=== PATIENT | male | born 1955 | race Caucasian/White ===

== ENCOUNTER → 2016-12-06 | Outpatient (CLI) | payer BC ==
[2016-12-06 10:12] LABS: MEAN CORPUSCULAR HEMOGLOBIN 31.5 pg (27.0-33.0); MEAN CORPUSCULAR HGB CONC 33.5 g/dl (32.0-36.5); MEAN CORPUSCULAR VOLUME 93.8 fl (80.0-96.0); RED CELL DISTRIBUTION WIDTH 12.8 % (11.5-14.5); WHITE BLOOD COUNT 4.2 K/mm3 (4.0-10.0)
--- NOTE | 2016-12-06 10:22 | REP ---
Clinical: Essential hypertension . Comparison: 11/15/2015 . Technique: PA and lateral. Findings: The mediastinum and cardiac silhouette are normal. The lung dunn are clear and without acute consolidation, effusion, or pneumothorax. The skeletal structures are intact and normal. Impression: 1. No acute cardiopulmonary process. Signed by Jose Dang MD 12/06/2016 10:14 A
[2016-12-06 10:48] LABS: ALBUMIN 3.5 GM/DL (3.2-5.2); ALKALINE PHOSPHATASE 83 U/L (45-117); ALT/SGPT 23 U/L (12-78); ANION GAP 7 MEQ/L (8-16); AST/SGOT 22 U/L (15-37); BILIRUBIN,TOTAL 0.6 MG/DL (0.2-1.0); BLOOD UREA NITROGEN 26 MG/DL (7-18); CALCIUM LEVEL 8.4 MG/DL (8.8-10.2); CARBON DIOXIDE LEVEL 30 MEQ/L (21-32); CHLORIDE LEVEL 105 MEQ/L (98-107); CHOLESTEROL LEVEL 177 MG/DL (<200); CREATININE FOR GFR 0.87 MG/DL (0.70-1.30); GLOMERULAR FILTRATION RATE > 60.0 (>49); GLUCOSE, FASTING 91 MG/DL (80-110); POTASSIUM SERUM 3.9 MEQ/L (3.5-5.1); SODIUM LEVEL 142 MEQ/L (136-145); TRIGLYCERIDES LEVEL 52 MG/DL (<150); URIC ACID 4.9 MG/DL (3.5-7.2)
--- NOTE | 2016-12-06 11:06 | ECGEPIP ---
Stationary ECG Study [facility] Test Date: 2016-12-06 Pat Name: ROD ALEXANDRE Department: Room: - Gender: M Heel Caser: MARKUS : 1955 Requested By: Mireya Carranza Order Number: [id number] Reading MD: Aliyah Hanson Measurements Intervals [place] Rate: 56 P: 47 MN: 166 QRS: 11 QRSD: 102 T: 34 QT: 413 QTc: 399 Interpretive Statements SINUS BRADYCARDIA Left atrial enlargement POSSIBLE Left ventricular hypertrophy VOLTAGE MORE PROMINENT MINIMAL VOLTAGE CRITERIA FOR LVH,NEW RATE SLOWER EARLY REPOLAR CHANGES AGAIN NOTED C/W 11/15/15 Electronically Signed On 12-06-2016 11:05:40 EDT by Aliyah Hanson
== END ==
LOC: M LAB 09:18
PROVIDERS: ATTEND Family Medicine
DX: I10 Essential (primary) hypertension (principal)

== ENCOUNTER 2017-03-12 09:02 | Day surgery (SDC) | payer BC ==
[~2017-03-12] VITALS: Ht 188 cm; Wt 86.2 kg
[~2017-03-12 09:02] MED LIST: ASPI81TA85 PO; LOSA100T8 PO; LR 1,000 ML IV ONE; LR 1,000 ML IV SCH; METO1TAB87 PO; OMEP40CA2 PO
[2017-03-12] MEDS ORDERED: METOPROLOL TART 25 MG TABLET As Ordered ONE (10:29)
[2017-03-12 10:30] VITALS: BP 178/90
[2017-03-12] MEDS ORDERED: METOPROLOL TART 12.5 MG PER 1/2 TAB PO ONE (10:30)
[2017-03-12] MEDS ORDERED: fentaNYL 250 MCG/5 ML INJECTION (J3010) As Ordered ONE (10:34)
[2017-03-12] MEDS ORDERED: LIDOCAINE 2% INJ 100 MG/5 ML SDV (FOR ANES.) As Ordered ONE (10:34)
[2017-03-12] MEDS ORDERED: ROCURONIUM BROMIDE 50 MG/5 ML VIAL/SYRINGE As Ordered ONE (10:34)
[2017-03-12] MEDS ORDERED: PROPOFOL 200 MG/20 ML VIAL As Ordered ONE ×2 (10:34→13:30)
[2017-03-12] MEDS ORDERED: MIDAZOLAM INJ 2 MG/2 ML VIAL (J2250) As Ordered ONE (10:35)
[2017-03-12] MEDS ORDERED: LIDOCAINE 1% SDV INJ 30 ML VIAL As Ordered ONE (12:16)
[2017-03-12] MEDS ORDERED: BUPIVACAINE HCL 0.25% 30 ML VIAL As Ordered ONE (12:16)
[2017-03-12] MEDS ORDERED: ONDANSETRON 4MG/2ML VIAL (J2405) As Ordered ONE (16:38)
[2017-03-12] MEDS ORDERED: LR 1,000 ML IV SCH (17:00)
[2017-03-12] MEDS ORDERED: ONDANSETRON 4MG/2ML VIAL (J2405) IV PRN (17:00)
[2017-03-12] MEDS ORDERED: fentaNYL 100 MCG/2 ML INJECTION (J3010) IV PRN (17:00)
[2017-03-12] MEDS ORDERED: PERCOCET 5MG/325MG TAB PO PRN (17:00)
[2017-03-12] MEDS ORDERED: METOCLOPRAMIDE INJ 10MG/2ML VIAL (J2765) As Ordered ONE (18:03)
[2017-03-12] MEDS ORDERED: METOCLOPRAMIDE INJ 10MG/2ML VIAL (J2765) IV ONE (18:15)
[2017-03-12 19:50] VITALS: BP 182/92
--- NOTE | 2017-03-18 09:38 | RO ---
DATE OF PROCEDURE: 03/12/2017 PREOPERATIVE DIAGNOSIS: Left inguinal hernia. POSTOPERATIVE DIAGNOSIS: Left inguinal hernia. PROCEDURE PERFORMED: Left inguinal herniorrhaphy with ultra Pro mesh. SURGEON: Dr. Chung Olivo ANESTHESIA: Spinal. INDICATIONS FOR PROCEDURE: The patient is a 62-year-old man who has noticed a bulge in the left inguinal area. He has previously had a right inguinal hernia repaired. Examination confirmed a small incomplete left inguinal hernia and he is now for repair. OPERATIVE PROCEDURE: The patient was taken to the operating room where a spinal anesthetic was placed. It took some time for the spinal to set up to be adequate for surgery. The patient's lower abdomen, groins and genitalia were then prepped and draped in a sterile fashion. An approximately 10 cm oblique left lower quadrant skin incision was made over the course of the inguinal canal. The incision was deepened into the subcutaneous tissue using the cautery. The external oblique was exposed and the external oblique fibers were opened in direction of the fibers into the external ring. The spermatic cord was isolated at the pubic tubercle with a [place] drain. Dissection revealed some fibrofatty tissue protruding at the internal ring superiorly and this was dissected free from the cord structures, transected and excised. A small indirect inguinal hernia sac was identified. This was opened and consisted of a small sliding hernia with the sigmoid colon involved as the lateral aspect of the hernia. This hernia sac was closed and then reduced beneath the level of fascia. The patient was also noted to have a small split in the inguinal floor medially. This small split was closed with interrupted simple sutures of #2-0 Ethibond. A 6 x 11 cm piece of ultra Pro mesh was selected. This was trimmed to fit the inguinal floor and split to fit about the spermatic cord laterally. The mesh was sutured to the pubic tubercle with a #3-0 Prolene which was then carried along the lateral border of the mesh suturing this to the shelving edge of the inguinal ligament. Medially, the mesh was tacked down to the underlying tissues using interrupted simple sutures of #3-0 Vicryl. The tails of the mesh were overlapped lateral to the spermatic cord and sutured together with Vicryl. This appeared to give a nice reconstruction and reinforcement of the inguinal floor. 0.25% Marcaine was infiltrated into the deeper tissues of the wound. The external oblique was closed with a running suture of #0 Vicryl. The subcutaneous tissues were closed with chromic and the skin edges with a running subcuticular #4-0 Vicryl and Steri-Strips. Additional 0.25% Marcaine was infiltrated along the skin edges. The patient tolerated the procedure well. A sterile dressing was applied and he was transported to the recovery room in stable condition. LIZETTE
== END 2017-03-12 19:55 | disposition home or self-care (01) ==
LOC: M SDC 09:02
PROVIDERS: ATTEND Surgery
DX: K40.90 Unilateral inguinal hernia, without obstruction or gangrene, not specified as recurrent (principal); I10 Essential (primary) hypertension; K21.9 Gastro-esophageal reflux disease without esophagitis; M12.9 Arthropathy, unspecified; G43.909 Migraine, unspecified, not intractable, without status migrainosus; R06.83 Snoring; Z79.899 Other long term (current) drug therapy; Z79.82 Long term (current) use of aspirin; Z87.891 Personal history of nicotine dependence
CPT/HCPCS: 49505; 88302; 96374; 96375; C1781; J2250; J2405; J2765; J3010

== ENCOUNTER 2017-04-12 12:44 | Inpatient (IN) | payer BC ==
[~2017-04-12] VITALS: Ht 188 cm; Wt 84.5 kg
[~2017-04-12 12:44] MED LIST changes: -LR 1,000 ML IV ONE; -LR 1,000 ML IV SCH
[2017-04-12] MEDS ORDERED: ASPIRIN 325 MG TAB PO ONE (13:15)
[2017-04-12 13:34] LABS: INR 1.07
--- NOTE | 2017-04-12 13:37 | REP ---
Head CT without contrast: History: Syncope. Comparison study: No comparison. CT findings: Bone window settings demonstrate an intact bony calvarium. There is no evidence of skull fracture or incidental bony calvarial lesion. The visualized paranasal sinuses appear clear. No intraorbital abnormality is seen. On soft tissue window setting images; the lateral, third, and fourth ventricles are normal in size and position. Scott-white differentiation pattern is normal above and below the tentorium. There are is no evidence of intracranial hemorrhage. No mass, edema, infarction, or midline shift is seen. No extra-axial fluid collection is appreciated. Impression: Negative noncontrast head CT. Signed by Eliot Bates MD 04/12/2017 01:28 P
[2017-04-12 13:45] LABS: BASO % 0.4 % (0.0-1.0); EOS # 0.1 K/mm3 (0.0-0.50); EOS % 3.2 % (0.0-3.0); LARGE UNSTAINED CELL # 0.1 K/mm3 (0.0-0.4); LARGE UNSTAINED CELL % 2.4 % (0.0-4.0); LYMPH # 1.1 K/mm3 (1.5-4.5); LYMPH % 26.4 % (24.0-44.0); MEAN CORPUSCULAR HEMOGLOBIN 31.9 pg (27.0-33.0); MEAN CORPUSCULAR HGB CONC 34.8 g/dl (32.0-36.5); MEAN CORPUSCULAR VOLUME 91.7 fl (80.0-96.0); MONO # 0.4 K/mm3 (0.0-0.8); MONO % 8.3 % (0.0-5.0); NEUTROPHILS # 2.6 K/mm3 (1.8-7.7); NEUTROPHILS % 59.3 % (36.0-66.0); PLATELET COUNT, AUTOMATED 209 k/mm3 (150-450); RED CELL DISTRIBUTION WIDTH 12.6 % (11.5-14.5); WHITE BLOOD COUNT 4.3 K/mm3 (4.0-10.0)
--- NOTE | 2017-04-12 13:49 | REP ---
Portable chest, 01:33 p.m., single PA view: Comparison is 12/06/2016. The lung dunn are clear. The cardiac size is normal. The estrella, mediastinum, and bony thorax are unremarkable. Impression: Negative portable chest. There is no interval change. No old no Signed by Juan M Jha MD 04/12/2017 01:41 P
[2017-04-12] MEDS: cloNIDine 0.1 MG TAB PO ONE (13:51)
[2017-04-12] MEDS: NS 1,000 ML IV SCH ×2 (13:51→21:30)
[2017-04-12 13:59] LABS: ANION GAP 3 MEQ/L (8-16); BLOOD UREA NITROGEN 25 MG/DL (7-18); CALCIUM LEVEL 8.8 MG/DL (8.8-10.2); CARBON DIOXIDE LEVEL 32 MEQ/L (21-32); CHLORIDE LEVEL 104 MEQ/L (98-107); GLOMERULAR FILTRATION RATE > 60.0 (>49); GLUCOSE, FASTING 90 MG/DL (80-110); POTASSIUM SERUM 4.1 MEQ/L (3.5-5.1); SODIUM LEVEL 139 MEQ/L (136-145)
[2017-04-12] MEDS ORDERED: cloNIDine HCL 0.1 MG/24 HR PATCH TOP ONE (15:00)
[2017-04-12] MEDS ORDERED: ONDANSETRON 4MG/2ML VIAL (J2405) IV PRN (15:15)
[2017-04-12] MEDS ORDERED: BISACODYL 5 MG TAB PO PRN (15:15)
[2017-04-12] MEDS ORDERED: cloNIDine HCL 0.1 MG/24 HR PATCH TOP SCH (15:15)
[2017-04-12] MEDS ORDERED: amLODIPine 5 MG TAB PO ONE (15:30)
[2017-04-12 15:48] LABS: METHADONE URINE NEGATIVE (NEGATIVE)
[2017-04-12] MEDS ORDERED: VITMTA PO (16:20)
[2017-04-12] MEDS ORDERED: GLUCTAB6 PO (16:20)
[2017-04-12] MEDS ORDERED: VITA100066 PO (16:20)
--- NOTE | 2017-04-12 18:55 | HPEPDOC ---
General Date of Admission Apr 12, 2017 at 15:13 Primary Care Physician: Mireya Pena Chief Complaint The patient is a 62-year-old male admitted with a reason for visit of Near Syncope. History of Present Illness The patient is a pleasant 62-year-old male who presents to the emergency department with the chief complaint of bilateral "" tunnel vision"". 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 The patient states that he did not experience associated shortness of breath, chest pain, heart palpitations, nausea, headache, sweating or acutely becoming hot. He also states at the end of a work day ( 10+ hours sitting at a desk) he has b/l swelling of his feet to his ankles, has seen a vascular surgeon for possible removal of vericose veins. He also admits to losing about 27 lbs in three months unintentionally, he states he was very stressed out though since his mom was very sick and just passed recently. Denied night sweats or chills. The patient states that this similar episode happened approximately 1 week ago while he was at [employer] sitting down eating with his family, again the transient tunnel vision lasted about 10 seconds with quick onset and quick abatement. The patient did admit that after the event he felt "" light"", he denied being dizzy or feeling "" lightheaded "" but just felt like his "" whole-body was light "". His stated that during these episodes he did not lose consciousness but that she could tell something was wrong by the "" look on his face "", she also states that he is able to talk and interact appropriately with these episodes of transient tunnel vision occur. Does admit to about a year ago experiencing 2 of these episodes while at work sitting down at his desk with the exact same presentation and sequela as the aforementioned incidents. He has never had a heart attack, stroke or been told that he has an irregular heart rate. He states that he is a very active individual in used to participate regularly in tae abi do. He does admit to progressive bilateral upper and lower extremity weakness that has been slowly progressing for the past 2 years, to the point that he can no longer perform tae aib do or 1 to exercise like he used to. 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 He denies any incontinence of bowel or urine nor paralysis or loss of sensation of extremities , has no inner, upper thigh numbness. He also does admit to 4 episodes of profuse watery, nonbloody, nonmucous containing stool this morning, denied abdominal pain or associated fever, nausea or vomiting. He does take his blood pressure at home and states that it is usually around 140-150/70-80. He states that his blood pressure is normally under control but that every once in a while when he goes to donate blood and they tell him that it is high in these events. He states he sees his primary care doctor regularly. He denies current or history of headaches or change in vision aside from the acute event that brought him to the emergency department today. Home Medications Scheduled (Losartan Potassium/Hydroc 100-12.5 mg) 1 Tab Tab, 1 TAB PO DAILY, (Reported) (Glucosamine Chondroitin) 1 Tab Tab, 2 TAB PO DAILY, (Reported) Aspirin (Aspir-81) 81 Mg Tab, 81 MG PO DAILY, (Reported) Cholecalciferol (Vitamin D) 1,000 Unit Tab, 1,000 UNIT PO DAILY, (Reported) Metoprolol Tartrate (Metoprolol Tartrate) 25 Mg Tab, 25 MG PO BID, (Reported) Multivitamins *[facility] STOCKED* (Thera M Plus *[facility] STOCKED*) 1 Tab Tab, 1 TAB PO DAILY, (Reported) Allergies Coded Allergies: No Known Drug Allergy (Verified Allergy, Unknown, 03/12/17) Past Medical History Medical History HTN Surgical History left inguinal hernia repair Family History Significant Family History: Heart disease (pt has strong family history of heart disease and [place], mother had a. fib. ) Social History * Smoker: former Smoker (quit in 1978 used to smoke 2 ppd since he was 24 y/o) Alcohol: other (quit in 1978 used to drink daily beer and rum since early ) Drugs: denies Psychosocial History: No pertinent psych hx very fit, likes to do art abi and run do but has not been able to do so in over two years due to weakness in legs Review of Symptoms Constitutional: Reports: Malaise, Weakness, Denies: Chills, Fever, Night Sweats Eyes: Reports: Vision change, Denies: Conjunctivae inflammation, Eyelid inflammation ENT: Denies: Head Aches, Ear Pain Skin: Denies: Rash, Lesions Pulmonary: Denies: Dyspnea, Cough, Pleuritic Chest Pain Cardiovascular: Reports: Edema, Lt Headedness, Denies: Chest Pain, Palpitations, Orthopnea Gastrointestinal: Reports: Diarrhea, Denies: Nausea, Vomiting, Abdominal Pain, Constipation Genitourinary: Denies: Dysuria Musculoskeletal: Denies: Neck Pain Neurological: Reports: Weakness, Denies: Numbness Psych: Reports: Mood Normal Physical Examination General Exam: Positive: Alert, Cooperative, No Acute Distress Eye Exam: Positive: PERRLA, Conjunctiva & lids normal, EOMI, Negative: Sclera icteric, Ptosis ENT Exam: Positive: Atraumatic, Mucous membr. moist/pink, Pharynx Normal, Tongue Midline, Nares Patent, Negative: Pharyngeal Edema Neck Exam: Positive: Supple, Negative: JVD Chest Exam: Positive: Clear to auscultation, Normal air movement, Negative: Rales, Rhonchi, Wheezing, Diminished Heart Exam: Positive: Rate Normal, Normal S1, Normal S2, Negative: Irregular Rhythm Telemetry: Positive: No significant arrhythmia Abdomen Exam: Positive: Normal bowel sounds, Soft, Negative: BS Hyperactive, BS Hypoactive, Tenderness, Hepatospenomegaly Extremity Exam: Positive: Normal pulses (strong dorsalis pedis pulses b/l), Other (vericose veins b/l LE), Negative: Clubbing, Cyanosis, Edema Skin Exam: Negative: Rash, Breakdown Psych Exam: Positive: Mental status NL Vital Signs Vital Signs Date Time Temp Pulse Resp B/P (MAP) Pulse Ox O2 Delivery O2 Flow Rate FiO2 04/12/17 17:00 50 99 04/12/17 16:56 199/107 (137) 04/12/17 12:45 98.2 18 Room Air Laboratory Data Labs 24H Laboratory Tests 2 04/12/17 13:16: White Blood Count 4.3, Red Blood Count 4.22L, Hemoglobin 13.5L, Hematocrit 38.7L , Mean Corpuscular Volume 91.7, Mean Corpuscular Hemoglobin 31.9, Mean Corpuscular Hemoglobin Concent 34.8, Red Cell Distribution Width 12.6, Platelet Count 209, Neutrophils (%) (Auto) 59.3, Lymphocytes (%) (Auto) 26.4, Monocytes ( %) (Auto) 8.3H, Eosinophils (%) (Auto) 3.2H, Basophils (%) (Auto) 0.4, Neutrophils # (Auto) 2.6, Lymphocytes # (Auto) 1.1L, Monocytes # (Auto) 0.4, Eosinophils # (Auto) 0.1, Basophils # (Auto) 0.0, Large Unclassified Cells % 2.4 , Large Unclassified Cells # 0.1, Prothrombin Time 14.0, Prothromb Time International Ratio 1.07, D-Dimer, Quantitative 963.4H, Anion Gap 3L, Glomerular Filtration Rate > 60.0, Blood Urea Nitrogen 25H, Creatinine 0.90, Sodium Level 139, Potassium Level 4.1, Chloride Level 104, Carbon Dioxide Level 32, Calcium Level 8.8, Total Creatine Kinase 80, Magnesium Level 2.0, Creatine Kinase MB 3.0, Creatine Kinase MB Relative Index 3.75, Troponin I < 0.02, Thyroid Stimulating Hormone (TSH) 1.730, Free Thyroxine 0.90, Ethyl Alcohol Level < 0.003 04/12/17 14:54: Urine Appearance CLEAR, Urine Color YELLOW, Urine pH 5.0, Urine Specific [place] 1.021, Urine Protein NEGATIVE, Urine Glucose (UA) NEGATIVE, Urine Ketones NEGATIVE, Urine Urobilinogen 0.2, Urine Bilirubin NEGATIVE, Urine Leukocyte Esterase NEGATIVE, Urine Blood NEGATIVE, Urine Nitrite NEGATIVE, Urine WBC (Auto) 0, Urine RBC (Auto) 2, Urine Hyaline Casts (Auto) 0, Urine Bacteria (Auto) NEGATIVE, Urine Squamous Epithelial Cells 0, Urine Sperm (Auto) , Urine Amphetamines Screen NEGATIVE, Urine Benzodiazepines Screen NEGATIVE, Urine Opiates Screen NEGATIVE, Urine Methadone Screen NEGATIVE, Urine Barbiturates Screen NEGATIVE, Urine Phencyclidine Screen NEGATIVE, Urine Cocaine Metabolite Screen NEGATIVE, Urine Cannabinoids Screen NEGATIVE CBC/BMP Laboratory Tests 04/12/17 13:16 Red Blood Count 4.22 L, Mean Corpuscular Volume 91.7, Mean Corpuscular Hemoglobin 31.9, Mean Corpuscular Hemoglobin Concent 34.8, Red Cell Distribution Width 12.6, Neutrophils (%) (Auto) 59.3, Lymphocytes (%) (Auto) 26.4, Monocytes (%) (Auto) 8.3 H, Eosinophils (%) (Auto) 3.2 H, Basophils (%) ( Auto) 0.4, Neutrophils # (Auto) 2.6, Lymphocytes # (Auto) 1.1 L, Monocytes # ( Auto) 0.4, Eosinophils # (Auto) 0.1, Basophils # (Auto) 0.0, Calcium Level 8.8, Total Creatine Kinase 80 Problems (1) Near syncope Status: Acute Response to Treatment: Stable Problem Text: Pt did have HR in the 40-50's in the ED, he states he has been on his new beta penelope Metoprolol for the past three months, he takes his medications religiously he admits. Suspect this could be from excessive beta blockage, however could also be arrhythmogenic in nature. Pt will be monitored in telemetry and it was discussed with pt and that f/ u cardiology with holter monitoring would be appropriate on outpt f/u. Will obtain ECHO and venous doppler u/s of LE. CXR and head CT did not demonstrate infiltrate nor bleed/mass to account for event TSH pending first set of card. osorio negative, will trend Will obtain orthostatics Will begin aspirin, losartan and amlodipine, will hold beta blockers at this time. (2) Weakness Status: Acute Response to Treatment: Stable Problem Text: Neuro exam did not demonstrate focal deficit, strength and sensation in tact upper and lower extremities suspect this could be secondary to neuropathy and outpt f/u with neurology with possible EMG studies was discussed with pt. Will obtain B12 level Denied saddle/groin anesthesia nor incontinence of bowel or urine, sensation in tact in upper groin/thighs (3) Hypertensive urgency Status: Acute Response to Treatment: Stable Problem Text: 227/112 on presentation to ED will begin amlodipine, aspirin and losartan may consider add on agent or adjustment if BP does not normalize do not suspect this is secondary HTN at this time ECHO pending (4) Bradycardia Status: Acute Response to Treatment: Stable Problem Text: pt did have heart rate in the 40-50 range upon presentation to ED , have stopped beta penelope mediation at this time continue to monitor, in telemetry unit (5) Diarrhea Status: Acute Response to Treatment: Stable Problem Text: pt had transient episode of 4x loose stool this AM, non-bloody, no mucus would continue to monitor at this point, pt does not complain of abdominal pain nor history of loose stool (6) DVT prophylaxis Status: Acute Response to Treatment: Stable Problem Text: SCD TEDS Plan / VTE VTE Prophylaxis Ordered?: Yes GME ATTESTATION GME ATTESTATION My preceptor for this patient encounter was physically present in the building during the encounter and was fully available. As needed, all aspects of the patient interview, examination, medical decision making process, and medical care plan development were reviewed and approved by the preceptor. Preceptor is aware and concurs with the plan as stated in the body of this note and will attest to such by his/her cosignature. JEREMI ROGERS DO Apr 12, 2017 18:55 JUANCHO HERRON MD Apr 13, 2017 16:31
[2017-04-12 19:30] LABS: VITAMIN B12 LEVEL 484 PG/ML (247-911)
--- NOTE | 2017-04-12 19:30 | REPUSA ---
Clinical history: Pain, swelling. Findings: The common femoral, superficial femoral, popliteal, and other deep venous structures compre ss normally and demonstrate normal color Doppler flow. Normal venous waveforms with augmentation are seen. Impression: No evidence of deep vein thrombosis in the femoral popliteal venous system.
[2017-04-12] MEDS: NITROGLYCERIN 2% OINT 1 GM *U/D* PKT TOP SCH ×2 (20:00→23:25)
[2017-04-12 20:18] VITALS: BP 160/83
[2017-04-12 20:22] VITALS: BP 120/48
[2017-04-12] MEDS: LOSARTAN 50 MG TAB PO SCH (21:00)
[2017-04-12] MEDS: hydrALAZINE INJ 20 MG/ML VIAL IV SCH (21:00)
[2017-04-12 21:15] VITALS: BP 128/68
[2017-04-12 21:16] VITALS: BP 143/75
[2017-04-12 21:17] VITALS: BP 132/86
[2017-04-12] MEDS: HEPARIN SOD (PORCINE) 5000 UNITS/ML VIAL SC SCH (21:30)
[2017-04-12 23:26] VITALS: BP_SYST 131; BP_SYST 135; BP_SYST 155; BP_DIAS 70; BP_DIAS 73; BP_DIAS 77
[2017-04-13] VITALS (8 sets, daily range): BP systolic 143–179; BP diastolic 73–86
[2017-04-13] MEDS: NITROGLYCERIN 2% OINT 1 GM *U/D* PKT TOP SCH (03:58)
[2017-04-13] MEDS: hydrALAZINE INJ 20 MG/ML VIAL IV SCH (03:58)
[2017-04-13] MEDS: HEPARIN SOD (PORCINE) 5000 UNITS/ML VIAL SC SCH ×3 (05:27→21:22)
[2017-04-13] MEDS: NS 1,000 ML IV SCH (05:27)
[2017-04-13 05:40] LABS: BASO % 0.5 % (0.0-1.0); EOS # 0.1 K/mm3 (0.0-0.50); EOS % 3.8 % (0.0-3.0); LARGE UNSTAINED CELL # 0.1 K/mm3 (0.0-0.4); LARGE UNSTAINED CELL % 2.7 % (0.0-4.0); MEAN CORPUSCULAR HEMOGLOBIN 32.4 pg (27.0-33.0); MEAN CORPUSCULAR HGB CONC 35.7 g/dl (32.0-36.5); MEAN CORPUSCULAR VOLUME 90.8 fl (80.0-96.0); MONO # 0.2 K/mm3 (0.0-0.8); MONO % 7.5 % (0.0-5.0); NEUTROPHILS # 1.7 K/mm3 (1.8-7.7); NEUTROPHILS % 53.4 % (36.0-66.0); PLATELET COUNT, AUTOMATED 183 k/mm3 (150-450); RED CELL DISTRIBUTION WIDTH 12.7 % (11.5-14.5); WHITE BLOOD COUNT 3.2 K/mm3 (4.0-10.0)
[2017-04-13 05:59] LABS: ANION GAP 7 MEQ/L (8-16); BLOOD UREA NITROGEN 18 MG/DL (7-18); CALCIUM LEVEL 8.4 MG/DL (8.8-10.2); CARBON DIOXIDE LEVEL 28 MEQ/L (21-32); CHLORIDE LEVEL 110 MEQ/L (98-107); CREATININE FOR GFR 0.61 MG/DL (0.70-1.30); GLOMERULAR FILTRATION RATE > 60.0 (>49); GLUCOSE, FASTING 84 MG/DL (80-110); POTASSIUM SERUM 3.8 MEQ/L (3.5-5.1); SODIUM LEVEL 145 MEQ/L (136-145)
--- NOTE | 2017-04-13 08:34 | ECGEPIP ---
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
[2017-04-13] MEDS ORDERED: hydroCHLOROthiazide 12.5 MG CAPSULE PO SCH (09:00)
[2017-04-13] MEDS: ASPIRIN 81 MG ENTERIC TAB PO SCH (10:08)
[2017-04-13] MEDS: LOSARTAN 50 MG TAB PO SCH ×2 (10:09→21:21)
[2017-04-13] MEDS: OMEPRAZOLE 20 MG CAP PO SCH (10:09)
--- NOTE | 2017-04-13 14:48 | IPNPDOC ---
Date Seen The patient was seen on 04/13/17. Progress Note In brief this is a 62-year-old man who presented yesterday after having tunnel vision and a feeling as he was given a pass out while driving a car he denies associated prodromal symptoms he denies any actual passing out he denies chest pressure or nausea vomiting he doesn't have some lightheadedness he had similar episode at a restaurant several days earlier and also several years ago he's had intermittent episodes no etiology has ever been determined. He has not had any episodes of loss of consciousness no bladder or bowel incontinence. He did have several episodes of diarrhea in the morning but was not having a bowel movement while driving he was not passing gas or bearing down SUBJECTIVE: At the present time the patient tells me that he is feeling completely back to normal he is asymptomatic he denies chest pain shortness breath fevers chills nausea vomiting diarrhea OBJECTIVE PHYSICAL EXAMINATION: VITAL SIGNS: Please see below. GENERAL: In general he is a pleasant elderly man sitting up in bed watching television he does not appear to be in any acute distress whatsoever HEENT: Pupils are equally round and reactive to light he is wearing glasses she has moist mucous membranes elevation CVP CARDIOVASCULAR: S1-S2. Regular rate and rhythm RESPIRATORY: Clear to auscultation bilaterally. ABDOMINAL: Bowel sounds are present abdomen soft and nontender EXTREMITIES: No clubbing cyanosis or edema NEUROLOGICAL: Nonfocal 5/5 strength in all 4 extremities LABORATORY DATA: Please see below. MICROBIOLOGY: Please see below. IMAGING: CT scan of the head:Negative noncontrast head CT. Chest x-ray:egative portable chest. There is no interval change Duplex ultrasound:No evidence of deep vein thrombosis in the femoral popliteal venous system. Echocardiogram: Ordered. DVT prophylaxis ordered?: Heparin every 8 ASSESSMENT AND PLAN: This is a 62-year-old man with near syncope. PROBLEMS: 1. And near syncope: The etiology remains unclear he is somewhat bradycardic and was on a beta penelope at this time we have held this and continue to monitor him on telemetry. He does not appear to have any neurological deficit he does not appear to have any stressors to suggest a vasovagal response no seizure-like activity significant cardiac history. Multiple sets of cardiac enzymes are negative. We are checking an echocardiogram. He is not orthostatic. Should an etiology of be unable to be determined consider having the patient evaluated for an outpatient Holter monitor. Positive rhinitis suspect his beta penelope, TSH within normal limits 2. Hypertension: The patient was quite hypertensive at times presentation at this time he does appear to be better controlled he is on hydrochlorothiazide and losartan. If he remains hypertensive would titrate up his hydrochlorothiazide and consider the addition of amlodipine 3. Gastroesophageal reflux disease: With omeprazole. 4. Weakness: Not associated with his near syncopal episodes with he has had intermittent episodes of weakness would recommend outpatient follow-up with neurology potential referral 5. Diarrhea: Appears of resolved at this time which are short-lived does not appear as though he had a vasovagal response however he did have 4 episodes prior to starting his time in a car ride when he had his near syncopal episode, his previous episodes of near-syncope have not been associated with bowel movements either a GI PCR panel has been ordered and is negative. His diarrhea has resolved. DISPOSITION: Pending echocardiogram review. VS, I&O, 24H, Fishbone Vital Signs/I&O Vital Signs Date Time Temp Pulse Resp B/P (MAP) Pulse Ox O2 Delivery O2 Flow Rate FiO2 04/13/17 12:00 97.5 73 18 158/77 (104) 99 Room Air I&O- Last 24 Hours up to 6 AM 04/14/17 06:00 Intake Total 700 ml Output Total 800 ml Balance -100 ml Laboratory Data 24H LABS Laboratory Tests 2 04/12/17 14:54: Urine Appearance CLEAR, Urine Color YELLOW, Urine pH 5.0, Urine Specific [place] 1.021, Urine Protein NEGATIVE, Urine Glucose (UA) NEGATIVE, Urine Ketones NEGATIVE, Urine Urobilinogen 0.2, Urine Bilirubin NEGATIVE, Urine Leukocyte Esterase NEGATIVE, Urine Blood NEGATIVE, Urine Nitrite NEGATIVE, Urine WBC (Auto) 0, Urine RBC (Auto) 2, Urine Hyaline Casts (Auto) 0, Urine Bacteria (Auto) NEGATIVE, Urine Squamous Epithelial Cells 0, Urine Sperm (Auto) , Urine Amphetamines Screen NEGATIVE, Urine Benzodiazepines Screen NEGATIVE, Urine Opiates Screen NEGATIVE, Urine Methadone Screen NEGATIVE, Urine Barbiturates Screen NEGATIVE, Urine Phencyclidine Screen NEGATIVE, Urine Cocaine Metabolite Screen NEGATIVE, Urine Cannabinoids Screen NEGATIVE 04/12/17 17:47: Total Creatine Kinase 68, Creatine Kinase MB 2.7, Creatine Kinase MB Relative Index 3.97, Troponin I < 0.02 04/13/17 00:50: Total Creatine Kinase 70, Creatine Kinase MB 2.3, Creatine Kinase MB Relative Index 3.28, Troponin I < 0.02 04/13/17 05:12: Total Creatine Kinase 72, Creatine Kinase MB 2.4, Creatine Kinase MB Relative Index 3.33, Troponin I < 0.02, White Blood Count 3.2L, Red Blood Count 3.98L, Hemoglobin 12.9L, Hematocrit 36.1L, Mean Corpuscular Volume 90.8, Mean Corpuscular Hemoglobin 32.4, Mean Corpuscular Hemoglobin Concent 35.7, Red Cell Distribution Width 12.7, Platelet Count 183, Neutrophils (%) (Auto) 53.4, Lymphocytes (%) (Auto) 32.0, Monocytes (%) (Auto) 7.5H, Eosinophils (%) (Auto) 3.8H, Basophils (%) (Auto) 0.5, Neutrophils # (Auto) 1.7L, Lymphocytes # (Auto) 1.0L, Monocytes # (Auto) 0.2, Eosinophils # (Auto) 0.1, Basophils # (Auto) 0.0, Large Unclassified Cells % 2.7, Large Unclassified Cells # 0.1, Anion Gap 7L, Glomerular Filtration Rate > 60.0, Blood Urea Nitrogen 18, Creatinine 0.61L, Sodium Level 145, Potassium Level 3.8, Chloride Level 110H, Carbon Dioxide Level 28, Calcium Level 8.4L CBC/BMP Laboratory Tests 04/13/17 05:12 Red Blood Count 3.98 L, Mean Corpuscular Volume 90.8, Mean Corpuscular Hemoglobin 32.4, Mean Corpuscular Hemoglobin Concent 35.7, Red Cell Distribution Width 12.7, Neutrophils (%) (Auto) 53.4, Lymphocytes (%) (Auto) 32.0, Monocytes (%) (Auto) 7.5 H, Eosinophils (%) (Auto) 3.8 H, Basophils (%) ( Auto) 0.5, Neutrophils # (Auto) 1.7 L, Lymphocytes # (Auto) 1.0 L, Monocytes # ( Auto) 0.2, Eosinophils # (Auto) 0.1, Basophils # (Auto) 0.0, Calcium Level 8.4 L , Total Creatine Kinase 72 Microbiology Microbiology 04/13/17 Gastrointestinal Tract Panel (PCR) - Final, Complete IGLESIAS,NAZEEL MD Apr 13, 2017 14:48
[2017-04-13] MEDS: ACETAMINOPHEN TAB 650MG DOSE (2X325MG) PO PRN (17:20)
[2017-04-14 04:00] VITALS: BP 165/83
[2017-04-14] MEDS: HEPARIN SOD (PORCINE) 5000 UNITS/ML VIAL SC SCH ×3 (05:24→21:54)
--- NOTE | 2017-04-14 05:40 | ECGEPIP ---
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
[2017-04-14 06:00] LABS: BASO % 0.3 % (0.0-1.0); EOS # 0.1 K/mm3 (0.0-0.50); EOS % 2.3 % (0.0-3.0); LARGE UNSTAINED CELL # 0.1 K/mm3 (0.0-0.4); LARGE UNSTAINED CELL % 2.2 % (0.0-4.0); LYMPH # 1.1 K/mm3 (1.5-4.5); LYMPH % 24.9 % (24.0-44.0); MEAN CORPUSCULAR HEMOGLOBIN 32.4 pg (27.0-33.0); MEAN CORPUSCULAR HGB CONC 35.1 g/dl (32.0-36.5); MEAN CORPUSCULAR VOLUME 92.1 fl (80.0-96.0); MONO # 0.4 K/mm3 (0.0-0.8); MONO % 8.5 % (0.0-5.0); NEUTROPHILS # 2.8 K/mm3 (1.8-7.7); NEUTROPHILS % 61.8 % (36.0-66.0); PLATELET COUNT, AUTOMATED 212 k/mm3 (150-450); RED CELL DISTRIBUTION WIDTH 12.8 % (11.5-14.5); WHITE BLOOD COUNT 4.5 K/mm3 (4.0-10.0)
[2017-04-14 06:08] LABS: ANION GAP 6 MEQ/L (8-16); BLOOD UREA NITROGEN 18 MG/DL (7-18); CALCIUM LEVEL 8.4 MG/DL (8.8-10.2); CARBON DIOXIDE LEVEL 30 MEQ/L (21-32); CHLORIDE LEVEL 108 MEQ/L (98-107); CREATININE FOR GFR 0.79 MG/DL (0.70-1.30); GLOMERULAR FILTRATION RATE > 60.0 (>49); GLUCOSE, FASTING 89 MG/DL (80-110); POTASSIUM SERUM 4.1 MEQ/L (3.5-5.1); SODIUM LEVEL 144 MEQ/L (136-145)
[2017-04-14 08:00] VITALS: BP 178/84
[2017-04-14] MEDS: ASPIRIN 81 MG ENTERIC TAB PO SCH (09:00)
[2017-04-14] MEDS: OMEPRAZOLE 20 MG CAP PO SCH (09:00)
[2017-04-14] MEDS: LOSARTAN 50 MG TAB PO SCH ×2 (09:00→21:54)
[2017-04-14] MEDS: hydroCHLOROthiazide 25 MG TAB PO SCH (09:01)
--- NOTE | 2017-04-14 11:30 | IPNPDOC ---
Date Seen The patient was seen on 04/14/17. Progress Note SUBJECTIVE: At the present time the patient tells me that he is feeling completely back to normal he is asymptomatic he denies chest pain shortness breath fevers chills nausea vomiting diarrhea OBJECTIVE PHYSICAL EXAMINATION: VITAL SIGNS: Please see below. GENERAL: In general he is a pleasant elderly man sitting up in bed he does not appear to be in any acute distress, he is accompanied by his and daughter HEENT: Pupils are equally round and reactive to light he is wearing glasses she has moist mucous membranes elevation CVP CARDIOVASCULAR: S1-S2. Regular rate and rhythm RESPIRATORY: Clear to auscultation bilaterally. ABDOMINAL: Bowel sounds are present abdomen soft and nontender EXTREMITIES: No clubbing cyanosis or edema NEUROLOGICAL: Nonfocal 5/5 strength in all 4 extremities LABORATORY DATA: Please see below. MICROBIOLOGY: Please see below. IMAGING: CT scan of the head:Negative noncontrast head CT. Chest x-ray:egative portable chest. There is no interval change Duplex ultrasound:No evidence of deep vein thrombosis in the femoral popliteal venous system. Echocardiogram: Ordered. DVT prophylaxis ordered?: Heparin every 8 ASSESSMENT AND PLAN: This is a 62-year-old man with near syncope. PROBLEMS: 1. And near syncope: The etiology remains unclear he is somewhat bradycardic and was on a beta penelope at this time we have held this and continue to monitor him on telemetry. He does not appear to have any neurological deficit he does not appear to have any stressors to suggest a vasovagal response no seizure-like activity or significant cardiac history. Multiple sets of cardiac enzymes are negative. We are checking an echocardiogram. He is not orthostatic. He has a hx of complex migraines which is treated only with tylenol. Should an etiology of be unable to be determined consider having the patient evaluated for an outpatient Holter monitor. TSH within normal limits. Con't to monitor 2. Hypertension: The patient was quite hypertensive at the time of his presentation at this time he does appear to be sub optimially controlled he is on hydrochlorothiazide which we will titrate up and cont losartan. 3. Gastroesophageal reflux disease: With omeprazole. 4. Weakness: Not associated with his near syncopal episodes with he has had intermittent episodes of weakness would recommend outpatient follow-up with neurology potential referral, possibly related to his atypical migraines with visual auras 5. Diarrhea: Appears of resolved at this time which are short-lived does not appear as though he had a vasovagal response however he did have 4 episodes prior to starting his time in a car ride when he had his near syncopal episode, his previous episodes of near-syncope have not been associated with bowel movements either a GI PCR panel has been ordered and is negative. His diarrhea has resolved. DISPOSITION: Pending echocardiogram review. VS, I&O, 24H, Fishbone Vital Signs/I&O Vital Signs Date Time Temp Pulse Resp B/P (MAP) Pulse Ox O2 Delivery O2 Flow Rate FiO2 04/14/17 09:00 165/83 04/14/17 08:00 98.4 84 18 98 Room Air I&O- Last 24 Hours up to 6 AM 04/15/17 06:00 Intake Total 0 ml Output Total 0 ml Balance 0 ml Laboratory Data 24H LABS Laboratory Tests 2 04/14/17 05:22: White Blood Count 4.5, Red Blood Count 4.14L, Hemoglobin 13.4L, Hematocrit 38.2L , Mean Corpuscular Volume 92.1, Mean Corpuscular Hemoglobin 32.4, Mean Corpuscular Hemoglobin Concent 35.1, Red Cell Distribution Width 12.8, Platelet Count 212, Neutrophils (%) (Auto) 61.8, Lymphocytes (%) (Auto) 24.9, Monocytes ( %) (Auto) 8.5H, Eosinophils (%) (Auto) 2.3, Basophils (%) (Auto) 0.3, Neutrophils # (Auto) 2.8, Lymphocytes # (Auto) 1.1L, Monocytes # (Auto) 0.4, Eosinophils # (Auto) 0.1, Basophils # (Auto) 0.0, Large Unclassified Cells % 2.2 , Large Unclassified Cells # 0.1, Anion Gap 6L, Glomerular Filtration Rate > 60.0, Blood Urea Nitrogen 18, Creatinine 0.79, Sodium Level 144, Potassium Level 4.1, Chloride Level 108H, Carbon Dioxide Level 30, Calcium Level 8.4L CBC/BMP Laboratory Tests 04/14/17 05:22 Red Blood Count 4.14 L, Mean Corpuscular Volume 92.1, Mean Corpuscular Hemoglobin 32.4, Mean Corpuscular Hemoglobin Concent 35.1, Red Cell Distribution Width 12.8, Neutrophils (%) (Auto) 61.8, Lymphocytes (%) (Auto) 24.9, Monocytes (%) (Auto) 8.5 H, Eosinophils (%) (Auto) 2.3, Basophils (%) ( Auto) 0.3, Neutrophils # (Auto) 2.8, Lymphocytes # (Auto) 1.1 L, Monocytes # ( Auto) 0.4, Eosinophils # (Auto) 0.1, Basophils # (Auto) 0.0, Calcium Level 8.4 L Microbiology Microbiology 04/13/17 Gastrointestinal Tract Panel (PCR) - Final, Complete SIOBHAN IGLESIAS MD Apr 14, 2017 11:30
[2017-04-14 12:00] VITALS: BP 174/100
[2017-04-14] MEDS ORDERED: amLODIPine 5 MG TAB PO ONE (13:15)
--- NOTE | 2017-04-14 13:36 | ECHO ---
DATE OF PROCEDURE: 04/13/2017 DATE OF : 1955 AGE: 62 GENDER: Male. HEIGHT: 74 inches. WEIGHT: 194 pounds. BODY SURFACE AREA: 2.15 m/s INPATIENT: Progressive care unit (PCU), Room 3218. REFERRING PHYSICIAN: Melia White INDICATION: Syncope. MEASUREMENTS: 2D Measurements: RV: 4.2 cm LV: 5.2 cm Septum: 1.2 cm Posterior wall: 1.2 cm Aortic root: 3.6 cm LA: 4.1 cm LVEF: 65% DOPPLER MEASUREMENTS: AV: 1.5 m/s LVOT: 0.96 m/s LVOT diameter: 2.2 cm MV-E: 87, A: 97, EA ratio: 0.9 Early mitral deceleration time: 296 ms E prime: 6.3 A prime: 9.5 E/E prime ratio: 13.8 Pulmonary artery wedge pressure: 11 mmHg PV: 0.8 m/s Pulmonary artery acceleration time: 109 ms RVSP: 35-40 mmHg. IVC: 2.1 cm COMMENTS: Normal sinus rhythm without intraventricular conduction disturbance. Mildly dilated left atrium but normal left ventricular size. Right heart chamber sizes were upper limits of normal to mildly increased. Left ventricular (LV) wall thickness was upper limits of normal to mildly increased. On real-time imaging from the parasternal and apical projections, wall motion was symmetrical and normal to hyperkinetic. Slightly thickened mitral annulus but normal leaflet thickness and excursion with no posterior systolic buckling. Three equal size aortic cusps with marginally thickened cusp edges but adequate cusp separation. Normal aortic root size. No apparent intracardiac mass or pericardial effusion. Color flow Doppler study taken from the parasternal and apical projections showed trace aortic, mild mitral and very mild tricuspid insufficiency with mild pulmonic insufficiency. Guided continuous wave Doppler of his aortic valve showed a normal peak systolic velocity against LV outflow tract obstruction. Pulsed and continuous wave Doppler of his LV inflow tract taken from the apical four-chamber projection showed normal diastolic filling velocities against mitral stenosis. There was more prominent late diastolic/atrial dependent filling pattern. LV diastolic dysfunction was further confirmed by prolonged early mitral deceleration time and tissue Doppler of his mitral annulus. However, his current mean left atrial pressure was within normal limits. Pulsed and continuous wave Doppler of his pulmonary trunk showed a normal peak systolic velocity against RV outflow tract obstruction. His pulmonary artery acceleration time was abbreviated, consistent with at least a mildly elevated pulmonary vascular resistance. Guided continuous wave Doppler of his tricuspid valve allowed our further estimation of his right ventricular systolic pressure (at least mildly increased). His inferior vena cava was upper limits of normal with normal respiratory collapse consistent with a normal estimated central venous pressure at this time. CONCLUSIONS: Unable to define a clear structural or functional cause for the patient's syncopal spell. Borderline left ventricular hypertrophy with preserved systolic function. Mild left atrial enlargement with Doppler evidence of an impairment of LV diastolic function but currently estimated mean left atrial pressure. Borderline increased right heart chamber sizes with normal wall motion. Doppler evidence of at least mild to perhaps moderate pulmonary hypertension. Normal inferior vena cava (IVC) size and collapse, against an elevated central venous pressure at this time. Subtle aortic valvular sclerosis without stenosis and only trace insufficiency. Very mild mitral annular thickening without inflow tract obstruction and only mild insufficiency.
[2017-04-14 15:00] VITALS: BP 160/78
[2017-04-14 16:00] VITALS: BP 134/72
[2017-04-14 20:00] VITALS: BP 132/80
[2017-04-14] MEDS: SLF 3 ML SYR IV SCH (21:58)
[2017-04-14] MEDS ORDERED: SLF 3 ML SYR IV PRN (22:00)
[2017-04-14] MEDS: ACETAMINOPHEN TAB 650MG DOSE (2X325MG) PO PRN (23:55)
[2017-04-15] VITALS: BP 140/70
[2017-04-15 04:00] VITALS: BP 132/82
[2017-04-15] MEDS: SLF 3 ML SYR IV SCH (04:39)
[2017-04-15] MEDS: HEPARIN SOD (PORCINE) 5000 UNITS/ML VIAL SC SCH (04:56)
[2017-04-15 05:24] LABS: BASO % 0.5 % (0.0-1.0); EOS # 0.1 K/mm3 (0.0-0.50); EOS % 2.4 % (0.0-3.0); LARGE UNSTAINED CELL # 0.1 K/mm3 (0.0-0.4); LARGE UNSTAINED CELL % 2.7 % (0.0-4.0); LYMPH # 1.1 K/mm3 (1.5-4.5); LYMPH % 26.9 % (24.0-44.0); MEAN CORPUSCULAR HEMOGLOBIN 32.5 pg (27.0-33.0); MEAN CORPUSCULAR HGB CONC 35.6 g/dl (32.0-36.5); MEAN CORPUSCULAR VOLUME 91.2 fl (80.0-96.0); MONO # 0.5 K/mm3 (0.0-0.8); MONO % 10.8 % (0.0-5.0); NEUTROPHILS # 2.4 K/mm3 (1.8-7.7); NEUTROPHILS % 56.9 % (36.0-66.0); PLATELET COUNT, AUTOMATED 210 k/mm3 (150-450); RED CELL DISTRIBUTION WIDTH 12.8 % (11.5-14.5); WHITE BLOOD COUNT 4.2 K/mm3 (4.0-10.0)
[2017-04-15 05:45] LABS: ANION GAP 4 MEQ/L (8-16); BLOOD UREA NITROGEN 17 MG/DL (7-18); CALCIUM LEVEL 9.1 MG/DL (8.8-10.2); CARBON DIOXIDE LEVEL 32 MEQ/L (21-32); CHLORIDE LEVEL 105 MEQ/L (98-107); CREATININE FOR GFR 0.83 MG/DL (0.70-1.30); GLOMERULAR FILTRATION RATE > 60.0 (>49); GLUCOSE, FASTING 99 MG/DL (80-110); POTASSIUM SERUM 3.9 MEQ/L (3.5-5.1); SODIUM LEVEL 141 MEQ/L (136-145)
[2017-04-15 07:48] VITALS: BP 156/90
[2017-04-15] MEDS: LOSARTAN 50 MG TAB PO SCH (07:48)
[2017-04-15] MEDS: OMEPRAZOLE 20 MG CAP PO SCH (07:48)
[2017-04-15] MEDS: hydroCHLOROthiazide 25 MG TAB PO SCH (07:49)
[2017-04-15] MEDS: ASPIRIN 81 MG ENTERIC TAB PO SCH (07:49)
[2017-04-15] MEDS ORDERED: LOSA100T36 PO (08:08)
[2017-04-15] MEDS ORDERED: HYDR25TAB PO (08:08)
[2017-04-15 08:09] VITALS: BP 156/90
--- NOTE | 2017-04-15 14:22 | DSES ---
DATE OF ADMISSION: 04/13/2017 DATE OF DISCHARGE: 04/15/2017 DISCHARGE DIAGNOSIS: Syncope. SECONDARY DIAGNOSES: Atypical migraines. Hypertension. Gastroesophageal reflux disease. Bradycardia. Intermittent weakness and diarrhea. HOSPITAL COURSE: The patient is a 62-year-old man who works at [employer] who presented to the hospital with an episode of near syncope while driving. He did not pass out. He felt as though he was getting lightheadedness and was getting tunnel vision and felt light. He pulled over, and it resolved spontaneously. He has had several episodes in the past over the last several years. He denies any iliana palpitations. No bowel or bladder incontinence. No loss of consciousness. No head trauma. No recent changes in medications. In the emergency room, he was found to be mildly bradycardic. He was on a beta penelope. This was held. He was monitored on telemetry without any episodes noted on telemetry or any further episodes of syncope while in hospital. Cardiac enzymes trended negative. A thyroid-stimulating hormone (TSH) and B12 are within normal limits. He did have an echocardiogram. He had a negative toxicology screen and a benign urinalysis. He did not have any signs or symptoms that would make anyone suspicious of a vasovagal episode, given that he was not bearing down or having a problem with passing gas or prolonged sitting or standing. He had been driving for only fifteen minutes. His diarrhea that he had on the morning of his hospitalization had resolved. He did have a gastrointestinal (GI) PCR panel checked while he was in the hospital, which was negative. He had a duplex of his lower extremities that did not reveal any deep venous thromboses (DVTs). He was not tachycardic or hypoxic to suggest that he had had any pulmonary embolism. He recently underwent hernia surgery. He did have a CT scan of his head that was negative and a chest x-ray that was also a negative portable study. SUBJECTIVE: Today, the patient reports he continues to feel well and has been asymptomatic for the entire hospitalization. OBJECTIVE: Vital signs: Temperature is 97.1, pulse 74, respiratory rate 18, blood pressure (BP) 156/90, oxygen (O2) saturation 98% on room air. General: He is a very pleasant man, sitting up on the edge of his bed. He does not appear to be in any acute distress whatsoever. HEENT: Cranial nerves II-XII are grossly intact. He has moist mucous membranes. No elevation in central venous pressure (CVP). Cardiovascular examination: S1, S2, regular. Respiratory examination: Is clear. Abdominal examination: Is benign. Extremities: No clubbing, cyanosis, or edema. LABORATORY STUDIES: WBC 4.2, hemoglobin 13.7, platelet count 210. Chemistry panel: Sodium 141, potassium 3.9, chloride 105, bicarbonate 32, BUN 17, creatinine 0.8. He did have an elevated D-dimer but no other factors to create suspicion for a pulmonary embolism (PE). Urinalysis was unremarkable. Other imaging as outlined. ASSESSMENT AND PLAN: This is a 62-year-old man with near syncope. PROBLEM: 1. Near syncope. Etiology remains unclear. He was somewhat bradycardic and was on a beta penelope, which has been discontinued. I have spoken with Dr. Salazar. He did review his echocardiogram that did not reveal any etiology for his syncope. He has been arranged to have a holter monitor placed on being discharged at Dr. Salazar' office today. I have confirmed this with Dr. Salazar. It does not appear to be a vasovagal response or neurological condition. He did not have any headache-like symptoms despite having a history of atypical migraines. He was not orthostatic. Thyroid-stimulating hormone (TSH) was in normal limits. Negative cardiac enzymes. Followup with Dr. Salazar. This may have been medication adverse effect with beta penelope, and hopefully this has resolved. 2. Hypertension. Beta penelope has been discontinued. He is started on a titrated dose of hydrochlorothiazide, as well as continued on losartan. 3. Gastroesophageal reflux disease. Continue on omeprazole. 4. Atypical migraines. The patient does have episodes of headache with aura that are associated with episodes of weakness. These happen approximately once a month. I recommend that he obtain an outpatient referral to neurology. However, his symptoms are fairly controlled with Tylenol at this time. 5. Diarrhea, resolved, and occurred prior to his hospitalization but did not occur while he was here. GI PCR panel was negative. DISPOSITION: The patient is being discharged home to the care of his family. His diet is [id number]. His activity is no driving until followup. He has been provided a prescription to keep him off work until 04/17/2017. He is to followup with his primary care provider in 7 days. He is to return to the emergency room (ER) if his symptoms worsen. MEDICATIONS AT THE TIME OF DISCHARGE: - hydrochlorothiazide 25 mg daily - losartan 100 mg daily - aspirin 81 mg daily - vitamin D 1000 units daily - glucosamine and chondroitin, as per the patient, two tablets daily - multivitamin one tablet daily Greater than 30 minutes spent organizing disposition.
== END 2017-04-15 11:23 | disposition home or self-care (01) | DRG 201 ==
LOC: M ED 12:44 → M ED INP 15:13 → M PCU 20:14 → OBSVTOIN 04-13 10:59
PROVIDERS: ADMIT General Practice; ATTEND Internal Medicine
DX: R00.1 Bradycardia, unspecified (principal); I16.0 Hypertensive urgency; R55 Syncope and collapse; R53.1 Weakness; G43.109 Migraine with aura, not intractable, without status migrainosus; R19.7 Diarrhea, unspecified; K21.9 Gastro-esophageal reflux disease without esophagitis; Z79.82 Long term (current) use of aspirin; Z79.899 Other long term (current) drug therapy; Z87.891 Personal history of nicotine dependence; I10 Essential (primary) hypertension

== ENCOUNTER → 2017-04-25 | Outpatient (CLI) | payer BC ==
[~2017-04-25] MED LIST changes: +GLUCTAB6 PO; +HYDR25TAB PO; +LOSA100T36 PO; +VITA100066 PO; +VITMTA PO
--- NOTE | 2017-04-25 10:49 | REP ---
Bilateral carotid artery duplex ultrasound: Peak flow velocity analysis: RIGHT LEFT ICA. Peak flow velocity cm/sec 63 69 ICA Peak flow velocity cm/sec 21 28 ICA/CCA Ratio 0.58 0.59 ECA Peak flow velocity cm/sec 90 70 CCA Peak flow velocity cm/sec 108 116 There is intimal thickening in the bulbs and proximal internal carotid arteries and proximal external carotid arteries bilaterally. There is no stenosis. The peak flow velocities are normal bilaterally. There is antegrade flow in the vertebral arteries bilaterally. Impression: There is no stenosis on the right on the left. Signed by Juan M Jha MD 04/25/2017 10:41 A
== END ==
LOC: M RAD 09:31
PROVIDERS: ATTEND Family Medicine
DX: R09.89 Other specified symptoms and signs involving the circulatory and respiratory systems (principal)

== ENCOUNTER → 2017-05-07 | Outpatient (REF) | payer BC ==
[2017-05-07 14:41] LABS: TOTAL PROTEIN 7.6 GM/DL (6.4-8.2)
[2017-05-07 14:44] LABS: FOLATE > 24.0 NG/ML (>5.4); VITAMIN B12 LEVEL 431 PG/ML (247-911)
[2017-05-09 11:06] LABS: ALBUMIN 4.42 GM/DL (3.29-5.55); ALBUMIN % 58.2 % (55.8-66.1); GAMMA GLOBULIN % 18.9 % (11.1-18.8)
== END ==
LOC: M LABNEURO 10:10
PROVIDERS: ATTEND Psychiatry & Neurology Neurology
DX: G60.9 Hereditary and idiopathic neuropathy, unspecified (principal)

== ENCOUNTER → 2017-06-03 | Outpatient (CLI) | payer BC ==
[2017-06-03 07:57] LABS: BASO % 0.7 % (0.0-1.0); EOS # 0.2 10^3/uL (0.0-0.50); EOS % 3.6 % (0.0-3.0); LYMPH # 1.1 10^3/uL (1.5-4.5); LYMPH % 24.1 % (24.0-44.0); MEAN CORPUSCULAR HGB CONC 33.2 g/dl (32.0-36.5); MEAN CORPUSCULAR VOLUME 93.3 fl (80.0-96.0); MONO # 0.6 10^3/uL (0.0-0.8); NEUTROPHILS # 2.6 10^3/uL (1.8-7.7); NEUTROPHILS % 58.6 % (36.0-66.0); PLATELET COUNT, AUTOMATED 185 10^3/uL (150-450); RED CELL DISTRIBUTION WIDTH 12.4 % (11.5-14.5); WHITE BLOOD COUNT 4.4 10^3/uL (4.0-10.0)
[2017-06-03 08:20] LABS: ANION GAP 4 MEQ/L (8-16); BLOOD UREA NITROGEN 20 MG/DL (7-18); CALCIUM LEVEL 8.6 MG/DL (8.8-10.2); CARBON DIOXIDE LEVEL 32 MEQ/L (21-32); CHLORIDE LEVEL 105 MEQ/L (98-107); CREATININE FOR GFR 0.79 MG/DL (0.70-1.30); GLOMERULAR FILTRATION RATE > 60.0 (>49); GLUCOSE, FASTING 69 MG/DL (80-110); POTASSIUM SERUM 4.2 MEQ/L (3.5-5.1); SODIUM LEVEL 141 MEQ/L (136-145)
== END ==
LOC: M LAB 07:36
PROVIDERS: ATTEND Internal Medicine Cardiovascular Disease
DX: I10 Essential (primary) hypertension (principal)

== ENCOUNTER → 2017-07-29 | Outpatient (CLI) | payer BC ==
[2017-07-29 13:01] LABS: BASO # 0.1 10^3/uL (0.0-0.2); EOS # 0.3 10^3/uL (0.0-0.50); HEMATOCRIT 40.8 % (42.0-52.0); HEMOGLOBIN 13.7 g/dl (14.0-18.0); IMMATURE GRANULOCYTE % 0.4 % (0-0); LYMPH # 1.1 10^3/uL (1.5-4.5); LYMPH % 22.2 % (24.0-44.0); MEAN CORPUSCULAR HEMOGLOBIN 30.6 pg (27.0-33.0); MEAN CORPUSCULAR HGB CONC 33.6 g/dl (32.0-36.5); MEAN CORPUSCULAR VOLUME 91.1 fl (80.0-96.0); MONO # 0.5 10^3/uL (0.0-0.8); MONO % 10.6 % (0.0-5.0); NEUTROPHILS % 60.8 % (36.0-66.0); PLATELET COUNT, AUTOMATED 219 10^3/uL (150-450); RED BLOOD COUNT 4.48 10^6/uL (4.30-6.10); RED CELL DISTRIBUTION WIDTH 12.4 % (11.5-14.5)
[2017-07-29 13:17] LABS: ANION GAP 5 MEQ/L (8-16); BLOOD UREA NITROGEN 23 MG/DL (7-18); CALCIUM LEVEL 8.9 MG/DL (8.8-10.2); CARBON DIOXIDE LEVEL 33 MEQ/L (21-32); CHLORIDE LEVEL 104 MEQ/L (98-107); CREATININE FOR GFR 0.76 MG/DL (0.70-1.30); GLOMERULAR FILTRATION RATE > 60.0 (>49); GLUCOSE, FASTING 96 MG/DL (80-110); POTASSIUM SERUM 4.2 MEQ/L (3.5-5.1); SODIUM LEVEL 142 MEQ/L (136-145)
== END ==
LOC: M LAB 11:54
DX: R42 Dizziness and giddiness (principal); I10 Essential (primary) hypertension
CPT/HCPCS: 80048

== ENCOUNTER → 2019-02-03 | Outpatient (CLI) | payer BC ==
[~2019-02-03] MED LIST changes: -LOSA100T36 PO; +LOSA100T50 PO
[2019-02-03 09:44] LABS: HEMATOCRIT 39.4 % (42.0-52.0); MEAN CORPUSCULAR HEMOGLOBIN 30.2 pg (27.0-33.0); MEAN CORPUSCULAR VOLUME 91.6 fl (80.0-96.0); PLATELET COUNT, AUTOMATED 196 10^3/uL (150-450); WHITE BLOOD COUNT 4.5 10^3/uL (4.0-10.0)
--- NOTE | 2019-02-03 09:57 | REP ---
Chest x-ray: Two views. History: Hypertension and fatigue. Comparison study: April 12, 2017. Findings: A bipolar pacemaker remains in the right heart via the left side. The heart is not enlarged. Pulmonary vasculature is not increased. The thoracic aorta slightly tortuous. Pleural angles are sharp. Lung dunn are clear. No significant bony abnormality. There are advanced degenerative changes in the shoulders bilaterally. Impression: Pacemaker in place. No active disease. Electronically Signed by Eliot Bates MD 02/03/2019 09:49 A
[2019-02-03 10:14] LABS: ALBUMIN 3.7 GM/DL (3.2-5.2); ALT/SGPT 24 U/L (12-78); BILIRUBIN,TOTAL 0.6 MG/DL (0.2-1.0); BLOOD UREA NITROGEN 19 MG/DL (7-18); CALCIUM LEVEL 8.9 MG/DL (8.8-10.2); CARBON DIOXIDE LEVEL 31 MEQ/L (21-32); CHLORIDE LEVEL 105 MEQ/L (98-107); CHOLESTEROL LEVEL 191 MG/DL (<200); GLOMERULAR FILTRATION RATE > 60.0 (>49); GLUCOSE, FASTING 86 MG/DL (70-100); HDL CHOLESTEROL 77 MG/DL (>40); LDL CHOLESTEROL 103 MG/DL (<100); NON-HDL-C 114 MG/DL; POTASSIUM SERUM 4.2 MEQ/L (3.5-5.1); PROSTATIC SPECIFIC AG MONITOR 4.78 NG/ML (< 4.00); SODIUM LEVEL 140 MEQ/L (136-145); TRIGLYCERIDES LEVEL 57 MG/DL (<150)
[2019-02-03 10:15] LABS: TESTOSTERONE 530 NG/DL (241-827)
[2019-02-03 11:36] LABS: HEMOGLOBIN A1c 5.7 %
--- NOTE | 2019-02-03 20:20 | ECGEPIP ---
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 Spontaneous AV conduction with narrow QRS complexes No significant change from 04/13/17 Electronically Signed on 02-03-2019 20:20:15 EDT by Flavio Salazar
== END ==
LOC: M LAB 08:53
PROVIDERS: ATTEND Family Medicine
DX: I10 Essential (primary) hypertension (principal)

== ENCOUNTER → 2019-05-07 | Outpatient (CLI) | payer BC ==
[~2019-05-07] MED LIST changes: -OMEP40CA2 PO; +OMEP40CA97 PO
[2019-05-07 12:56] LABS: HEMATOCRIT 42.5 % (42.0-52.0); MEAN CORPUSCULAR HEMOGLOBIN 30.7 pg (27.0-33.0); MEAN CORPUSCULAR HGB CONC 32.9 g/dl (32.0-36.5); MEAN CORPUSCULAR VOLUME 93.2 fl (80.0-96.0); PLATELET COUNT, AUTOMATED 209 10^3/uL (150-450); RED BLOOD COUNT 4.56 10^6/uL (4.30-6.10); WHITE BLOOD COUNT 4.9 10^3/uL (4.0-10.0)
[2019-05-07 13:17] LABS: HEMOGLOBIN A1c 5.9 %
[2019-05-07 13:28] LABS: ALT/SGPT 27 U/L (12-78); BILIRUBIN,TOTAL 0.6 MG/DL (0.2-1.0); BLOOD UREA NITROGEN 25 MG/DL (7-18); CALCIUM LEVEL 9.4 MG/DL (8.8-10.2); CARBON DIOXIDE LEVEL 31 MEQ/L (21-32); CHLORIDE LEVEL 103 MEQ/L (98-107); CHOLESTEROL LEVEL 218 MG/DL (<200); CHOLESTEROL RISK RATIO 2.595 (<5); CREATININE FOR GFR 0.97 MG/DL (0.70-1.30); GLOMERULAR FILTRATION RATE > 60.0 (>49); GLUCOSE, FASTING 107 MG/DL (70-100); HDL CHOLESTEROL 84 MG/DL (>40); LDL CHOLESTEROL 115 MG/DL (<100); NON-HDL-C 134 MG/DL; POTASSIUM SERUM 4.3 MEQ/L (3.5-5.1); PROSTATIC SPECIFIC AG MONITOR 5.53 NG/ML (< 4.00); SODIUM LEVEL 139 MEQ/L (136-145); TESTOSTERONE 459 NG/DL (241-827); TOTAL PROTEIN 7.7 GM/DL (6.4-8.2); TRIGLYCERIDES LEVEL 97 MG/DL (<150)
== END ==
LOC: M LAB 11:26
PROVIDERS: ATTEND Family Medicine
DX: I10 Essential (primary) hypertension (principal)

== ENCOUNTER → 2019-08-14 | Outpatient (REF) | payer BC | LOC: M SMT 13:52 | PROVIDERS: ATTEND Nurse Practitioner Family | DX: R97.20 Elevated prostate specific antigen [PSA] (principal) ==

== ENCOUNTER → 2019-08-14 | Outpatient (CLI) | payer BC ==
[2019-08-16 00:06] LABS: PSA % FREE 22.5 % (.); PSA FREE 1.19 ng/mL; PSA TOTAL 5.3 ng/mL (0.0-4.0)
== END ==
LOC: M LAB 10:19
PROVIDERS: ATTEND Nurse Practitioner Family
DX: R97.20 Elevated prostate specific antigen [PSA] (principal)

== ENCOUNTER → 2019-09-08 | Outpatient (CLI) | payer BC ==
--- NOTE | 2019-09-08 12:45 | REPPI ---
Prostate sonography: History: Elevated PSA Sonographic findings: Trans rectal prostate sonography demonstrates unremarkable seminal vesicles. Prostate gland is heterogeneously enlarged with calcifications and cystic changes noted. Glandular dimensions are measured at 5.6 x 4.7 x 4.8 cm with a calculated glandular volume of 66.0 ml. There is a 0.5 cm hypoechoic area at the left lateral apex. Transrectal sonographic guidance is provided to Dr. Eastman who performed trans rectal ultrasound guided needle biopsy procedure . Electronically Signed by Eliot Bates MD 09/08/2019 12:21 P
== END ==
LOC: M SMT PRO 09:27
PROVIDERS: ATTEND Urology
DX: C61 Malignant neoplasm of prostate (principal)
CPT/HCPCS: 76872; 76942; G0416

== ENCOUNTER → 2020-01-07 | Outpatient (CLI) | payer BC ==
[~2020-01-07] MED LIST changes: -ASPI81TA85 PO; +ASPI81TA86 PO; +HYDR-3490 PO; -HYDR25TAB PO
== END ==
LOC: M LAB 08:30
PROVIDERS: ATTEND Urology
DX: C61 Malignant neoplasm of prostate (principal)

== ENCOUNTER → 2020-04-05 | Outpatient (CLI) | payer BC ==
[~2020-04-05] MED LIST changes: -HYDR-3490 PO; +HYDR25TAB PO
== END ==
LOC: M LAB 11:22
PROVIDERS: ATTEND Urology
DX: C61 Malignant neoplasm of prostate (principal)

== ENCOUNTER → 2020-08-02 | Outpatient (CLI) | payer BC | LOC: M LAB 11:23 | PROVIDERS: ATTEND Urology | DX: C61 Malignant neoplasm of prostate (principal) ==

== ENCOUNTER → 2020-10-17 | Outpatient (CLI) | payer BC ==
[~2020-10-17] MED LIST changes: +HYDR-3490 PO; -HYDR25TAB PO
== END ==
LOC: M LAB 09:32
PROVIDERS: ATTEND Urology
DX: C61 Malignant neoplasm of prostate (principal)

== ENCOUNTER → 2020-11-08 | Outpatient (CLI) | payer BC ==
--- NOTE | 2020-11-08 09:59 | REPPI ---
INDICATION: ELEVATED PSA. COMPARISON: Comparison study November 07, 2019.. TECHNIQUE: Transrectal prostate sonography. Transrectal sonographic guidance. FINDINGS: Glandular dimensions are measured at 5.3 x 3.9 x 4.7 cm with a calculated glandular volume of 51.2 ml. Transrectal sonographic guidance is provided to Dr. Eastman who performed trans rectal ultrasound guided needle biopsy procedure. IMPRESSION: Transrectal prostate sonographic measurements and sonographic guidance provided for biopsy as above. <Electronically signed by Zan Bates > 11/08/20 0912
== END ==
LOC: M SMT PRO 08:20
PROVIDERS: ATTEND Urology
DX: C61 Malignant neoplasm of prostate (principal)
CPT/HCPCS: 76872; 76942; G0416

== ENCOUNTER → 2021-02-13 | Outpatient (CLI) | payer BC ==
[~2021-02-13] MED LIST changes: +OMEP40CA4 PO; -OMEP40CA97 PO
== END ==
LOC: M LAB 08:35
PROVIDERS: ATTEND Urology
DX: C61 Malignant neoplasm of prostate (principal)

== ENCOUNTER → 2021-04-14 | Outpatient (CLI) | payer BC ==
[2021-04-14 13:50] LABS: HEMATOCRIT 38.1 % (42.0-52.0); HEMOGLOBIN 12.5 g/dl (13.5-17.5); MEAN CORPUSCULAR HEMOGLOBIN 30.9 pg (27.0-33.0); MEAN CORPUSCULAR HGB CONC 32.8 g/dl (32.0-36.5); MEAN CORPUSCULAR VOLUME 94.3 fl (80.0-96.0); PLATELET COUNT, AUTOMATED 297 10^3/uL (150-450); RED BLOOD COUNT 4.04 10^6/uL (4.30-6.10); WHITE BLOOD COUNT 6.1 10^3/uL (4.0-10.0)
[2021-04-14 14:22] LABS: ALBUMIN 3.5 GM/DL (3.2-5.2); BILIRUBIN,TOTAL 0.2 MG/DL (0.2-1.0); C REACTIVE PROTEIN QUANTITATIV 0.81 MG/DL (0.00-0.30); CREATININE FOR GFR 1.37 MG/DL (0.70-1.30); GLOMERULAR FILTRATION RATE 55.2 (>49); POTASSIUM SERUM 4.5 MEQ/L (3.5-5.1); TOTAL PROTEIN 7.3 GM/DL (6.4-8.2)
[2021-04-14 14:25] LABS: ERYTHROCYTE SEDIMENTATION RATE 46 mm/hr (0-20)
== END ==
LOC: M LAB 12:54
PROVIDERS: ATTEND Internal Medicine
DX: I10 Essential (primary) hypertension (principal)

== ENCOUNTER → 2021-04-21 | Outpatient (REF) | payer BC | LOC: M LAB REF 15:58 | PROVIDERS: ATTEND Internal Medicine | DX: L02.419 Cutaneous abscess of limb, unspecified (principal) ==

== ENCOUNTER → 2021-05-15 | Outpatient (CLI) | payer BC | LOC: M LAB 09:30 | PROVIDERS: ATTEND Urology | DX: C61 Malignant neoplasm of prostate (principal) ==

== ENCOUNTER → 2021-07-05 | Outpatient (CLI) | payer BC ==
[~2021-07-05] MED LIST changes: +ASPI81TA26 PO; +CHOL25TA8 PO; +COQ1200C3 PO; +LOSA100T5 PO; +METO1TAB32 PO; +NORV5TAB PO; +OMEGCAP4 PO; +TURM500C PO
--- NOTE | 2021-07-05 10:22 | REP ---
INDICATION: MALIGNANT NEOPLASM OF PROSTATE. COMPARISON: 02/03/2019 TECHNIQUE: PA and lateral FINDINGS: The superior mediastinal structures are midline. The cardiac silhouette is unremarkable in size, shape, and position. The diaphragmatic surfaces of the lungs are regular, and the costophrenic angles are clear. The pulmonary dunn are clear. The imaged osseous structures are intact. The dual chamber bipolar pacemaker devices unchanged IMPRESSION: There is no acute cardiopulmonary disease. <Electronically signed by Jairo Cook > 07/05/21 [id number]
[2021-07-05 10:56] LABS: HEMATOCRIT 40.1 % (42.0-52.0); HEMOGLOBIN 13.2 g/dl (13.5-17.5); MEAN CORPUSCULAR HEMOGLOBIN 30.6 pg (27.0-33.0); MEAN CORPUSCULAR HGB CONC 32.9 g/dl (32.0-36.5); PLATELET COUNT, AUTOMATED 194 10^3/uL (150-450); RED BLOOD COUNT 4.31 10^6/uL (4.30-6.10); WHITE BLOOD COUNT 3.7 10^3/uL (4.0-10.0)
[2021-07-05 11:08] LABS: INR 1.02; PARTIAL THROMBOPLASTIN TIME 29.6 SECONDS (25.9-37.0); PROTHROMBIN TIME 13.8 SECONDS (12.7-14.5)
[2021-07-05 11:13] LABS: BLOOD UREA NITROGEN 28 MG/DL (7-18); CALCIUM LEVEL 9.4 MG/DL (8.8-10.2); CARBON DIOXIDE LEVEL 31 MEQ/L (21-32); CHLORIDE LEVEL 106 MEQ/L (98-107); CREATININE FOR GFR 0.81 MG/DL (0.70-1.30); GLOMERULAR FILTRATION RATE > 60.0 (>49); GLUCOSE, FASTING 102 MG/DL (70-100); POTASSIUM SERUM 4.1 MEQ/L (3.5-5.1); SODIUM LEVEL 141 MEQ/L (136-145)
--- NOTE | 2021-07-06 00:51 | ECGEPIP ---
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
== END ==
LOC: M RAD 09:51
PROVIDERS: ATTEND Urology
DX: C61 Malignant neoplasm of prostate (principal)

== ENCOUNTER → 2021-07-05 | Outpatient (CLI) | payer BC ==
[2021-07-05 11:47] LABS: CHOLESTEROL RISK RATIO 2.425 (<5)
== END ==
LOC: M LAB 09:49
PROVIDERS: ATTEND Physician Assistant Medical
DX: Z82.49 Family history of ischemic heart disease and other diseases of the circulatory system (principal)

== ENCOUNTER → 2021-07-10 | Outpatient (REF) | payer BC ==
[2021-07-10 12:43] LABS: APPEARANCE, URINE CLEAR (CLEAR); BACTERIA, URINE AUTO NEGATIVE (NEGATIVE); BILIRUBIN, URINE AUTO NEGATIVE (NEGATIVE); BLOOD, URINE BLOOD NEGATIVE (NEGATIVE); COLOR, URINE STRAW (YELLOW); GLUCOSE, URINE (UA) AUTO NEGATIVE (NEGATIVE); KETONE, URINE AUTO NEGATIVE (NEGATIVE); LEUKOCYTE ESTERASE, URINE AUTO NEGATIVE (NEGATIVE); NITRITE, URINE AUTO NEGATIVE (NEGATIVE); PROTEIN, URINE AUTO NEGATIVE (NEGATIVE); RBC, URINE AUTO 0 /HPF (0-3); SPECIFIC GRAVITY URINE AUTO 1.005 (1.002-1.035); SQUAMOUS EPITHELIAL CELL UR AU 0 /HPF (0-6); UROBILINOGEN, URINE AUTO 0.2 mg/dL (0.0-2.0); WBC, URINE AUTO 1 /HPF (0-3)
== END ==
LOC: M LAB REF 12:15
PROVIDERS: ATTEND Internal Medicine
DX: Z01.818 Encounter for other preprocedural examination (principal); C61 Malignant neoplasm of prostate

== ENCOUNTER → 2021-07-17 | Outpatient (CLI) | payer BC ==
[~2021-07-17] MED LIST changes: +BACTDSTA PO; +CIPR-249 PO; +COLA100C5 PO; +COQ1100C5 PO; +LOSA100T45 PO; -LOSA100T50 PO; +PERCOCET PO; +POTA-151 PO; +POTA10TA17 PO; +TORS20TA2 PO; +VALS80TA PO
== END ==
LOC: M LABSMTC 10:17
PROVIDERS: ATTEND Anesthesiology
DX: Z01.812 Encounter for preprocedural laboratory examination (principal)

== ENCOUNTER 2021-07-19 06:02 | Inpatient (IN) | payer MEDICARE, BC ==
[~2021-07-19] VITALS: Ht 188 cm; Wt 85.5 kg
[~2021-07-19 06:02] MED LIST changes: -BACTDSTA PO; -CIPR-249 PO; -COLA100C5 PO; -COQ1100C5 PO; +HEPARIN SOD (PORCINE) 5000UNITS/ML 1ML VIAL/SYRINGE SQ ONE; -LOSA100T45 PO; +LOSA100T50 PO; +LR 1,000 ML IV ONE; -PERCOCET PO; -POTA-151 PO; -POTA10TA17 PO; -TORS20TA2 PO; -VALS80TA PO; +ceFAZolin SOD 2 GM in IV 1 EA IV ONE
[2021-07-19] MEDS ORDERED: PHENYLephrine 500MCG 5ML (100MCG/ML) SYRINGE As Ordered ONE (06:54)
[2021-07-19] MEDS ORDERED: SUGAMMADEX SODIUM 500 MG/5 ML VIAL (BRIDION) As Ordered ONE (06:54)
[2021-07-19] MEDS ORDERED: MIDAZOLAM INJ 2MG/2ML VIAL (J2250 PER 1MG) As Ordered ONE (06:54)
[2021-07-19] MEDS ORDERED: ePHEDrine SULFATE 25 MG/5 ML(5MG/ML) SYRINGE As Ordered ONE (06:54)
[2021-07-19] MEDS ORDERED: ONDANSETRON 4MG/2ML VIAL As Ordered ONE (06:54)
[2021-07-19] MEDS ORDERED: LIDOCAINE 2% 100MG/5ML SDV (FOR ANES.) As Ordered ONE (06:54)
[2021-07-19] MEDS ORDERED: ROCURONIUM BROMIDE 50 MG/5 ML VIAL As Ordered ONE ×3 (06:54→09:48)
[2021-07-19] MEDS ORDERED: fentaNYL 250 MCG/5 ML INJECTION (J3010) As Ordered ONE (06:54)
[2021-07-19] MEDS ORDERED: dexameTHASONE 4 MG/ML 1ML VIAL (J1100 PER 1MG) As Ordered ONE (06:54)
[2021-07-19] MEDS ORDERED: propofoL 200 MG/20 ML VIAL As Ordered ONE (06:55)
[2021-07-19] MEDS ORDERED: ACETAMINOPHEN 1000MG 100ML IV BTL (OFIRMEV) (J0131 PER 10MG) As Ordered ONE (07:12)
[2021-07-19] MEDS ORDERED: BUPIVACAINE HCL 0.25% 30ML VIAL As Ordered ONE (07:15)
[2021-07-19] MEDS ORDERED: LIDOCAINE 1% SDV 30ML VIAL As Ordered ONE (07:15)
[2021-07-19] MEDS ORDERED: PERCOCET 5MG/325MG TAB PO PRN ×2 (07:35)
[2021-07-19] MEDS ORDERED: ONDANSETRON 4MG/2ML VIAL IV PRN ×2 (07:35→13:00)
[2021-07-19 12:53] LABS: HEMATOCRIT 35.9 % (42.0-52.0); MEAN CORPUSCULAR HEMOGLOBIN 30.8 pg (27.0-33.0); MEAN CORPUSCULAR HGB CONC 33.4 g/dl (32.0-36.5); MEAN CORPUSCULAR VOLUME 92.3 fl (80.0-96.0); PLATELET COUNT, AUTOMATED 191 10^3/uL (150-450); RED BLOOD COUNT 3.89 10^6/uL (4.30-6.10); WHITE BLOOD COUNT 9.6 10^3/uL (4.0-10.0)
[2021-07-19] MEDS ORDERED: oxyCODONE 5MG TAB PO PRN (13:00)
[2021-07-19] MEDS ORDERED: fentaNYL 100 MCG/2 ML INJECTION (J3010) IV PRN (13:00)
[2021-07-19] MEDS ORDERED: LR 1,000 ML IV SCH (13:00)
[2021-07-19] MEDS ORDERED: HYDROMORPHONE HCL 0.5 MG/ 0.5 ML SYRINGE (J1170 PER 1) IV PRN (13:00)
[2021-07-19 13:18] LABS: BLOOD UREA NITROGEN 29 MG/DL (7-18); CALCIUM LEVEL 8.5 MG/DL (8.8-10.2); CARBON DIOXIDE LEVEL 27 MEQ/L (21-32); CHLORIDE LEVEL 105 MEQ/L (98-107); CREATININE FOR GFR 0.88 MG/DL (0.70-1.30); GLOMERULAR FILTRATION RATE > 60.0 (>49); GLUCOSE, FASTING 166 MG/DL (70-100); POTASSIUM SERUM 4.3 MEQ/L (3.5-5.1); SODIUM LEVEL 139 MEQ/L (136-145)
[2021-07-19 14:15] VITALS: BP 127/57
[2021-07-19 14:45] VITALS: BP 126/57
[2021-07-19] MEDS: NS 1,000 ML IV SCH (14:50)
[2021-07-19] MEDS: DOCUSATE SODIUM 100MG CAPSULE PO SCH ×2 (14:50→21:18)
[2021-07-19 15:45] VITALS: BP 127/65
[2021-07-19] MEDS: ceFAZolin SOD 1 GM in D5W MINI-BAG PLUS 50 ML IV SCH (16:21)
[2021-07-19 16:45] VITALS: BP 134/69
--- NOTE | 2021-07-19 17:41 | ROOPDOC ---
[facility] Report Of Operation Report of Operation DATE OF PROCEDURE: 07/19/21 PREPROCEDURE DIAGNOSES: Prostate Cancer. POSTPROCEDURE DIAGNOSES: Prostate Cancer. PROCEDURE: Robotic-assisted Laparoscopic Radical Prostatectomy with Bilateral Pelvic Lymph Node Dissection, Cystoscopy with Complex Catheter Placement over a Wire. SURGEON: Davide Chung MD IRRIGATION SYSTEM OPERATOR: Mary Leonard NP ANESTHESIA: General. OPERATIVE INDICATIONS: This is a 66 year old male with intermediate risk clinical T1c Ant 3+4 prostate cancer, here today for the above procedure for treatment. DESCRIPTION OF PROCEDURE: The patient was brought to the operating room and general anesthesia was induced. Prophylactic antibiotics were infused. He was then placed in the supine position and prepped and draped in the usual sterile fashion. At this point, I attempted to insert a #16-Senegalese Lopez catheter into his bladder but it would not advance past the prostate. I then tried to insert a #18-Senegalese coude catheter and it too would not advance past the prostate. The decision was then made to perform flexible cystoscopy. A flexible cystoscope was inserted into the urethral meatus and advanced towards the bladder. There were no urethral strictures. At the level of the prostate, there was a very prominent median lobe. I navigated past this and inserted a guidewire. Once this was done, a #18-[place] tip catheter was advanced over the wire and into the bladder. The wire was removed and the balloon was filled with 10 mL of sterile water. We then made a midline incision just above the umbilicus for an 8 mm port. A Veress needle was utilized to achieve pneumoperitoneum. Next, an 8 mm port was inserted into the incision and subsequently a camera was inserted. There were no injuries from the Veress needle or initial trocar placement. Then three robotic ports were placed in the usual configuration in line just below the level of the umbilicus. A 12 mm clerical assistant port was placed just lateral and at the level of the umbilicus. Once all the ports were placed, the robot was docked. Lysis of adhesions between the sigmoid colon and abdominal wall was then performed. Next, the bladder was then released from the anterior abdominal wall using electrocautery. Once the bladder was dropped, the fat overlying the prostate was cleared using electrocautery. The superficial dorsal vein was controlled with electrocautery. The endopelvic fascia was opened on both sides and the dorsal venous complex was cleared. Next, a #0 Vicryl [id number] stitch was placed around the dorsal venous complex. Once that was done, the bladder was opened and dissected away from the prostate. Of note the patient had a very large median lobe and this made dissection of the poste rior bladder neck more difficult than normal. Ultimately the bladder neck was dissected off the median lobe. At this point, the prostate was lifted up. The vasa deferentia were identified in the midline. They were controlled with electrocautery and then transected. The seminal vesicles were also dissected off bilaterally. After carefully dissecting the prostate off the rectum using cold scissors, and ligating and transecting the pedicles, the prostate was only connected by the urethra. At this point, the dorsal venous complex was transected with electrocautery. The urethra was then opened and the catheter was withdrawn and the posterior urethra was transected, thus freeing the prostate. At this point, we checked for hemostasis and it did appear very good. Next, we performed bilateral pelvic lymph node dissection. This was done in a standard fashion. The limits of dissection were the iliac vein proximally, the obturator nerve distally, the pelvic sidewall laterally, and the bladder medially. All lymphatic tissue within these limits was removed. I performed the same procedure on both the right and left sides. Hemostasis was then obtained. The lymphatic packets were then placed in separate Endo Catch bags for future retrieval. Once hemostasis was confirmed, I then moved on to perform the vesicourethral anastomosis. The vesicourethral anastomosis was performed in running fashion using a Quill stitch. Once this was done, the final #20-Senegalese Lopez catheter was placed. The balloon was filled with 15 mL of sterile water. Upon completion of the vesicourethral anastomosis, it was tested by filling the bladder with sterile water. The anastomosis appeared to be watertight. At this point, the prostate and seminal vesicles were placed in an Endo Catch bag for future retrieval. The robot was then undocked. A Faith fascial closure device was utilized to place a #0 Vicryl dale ture between the fascia of the 12 mm clerical assistant port. At this point, a Rell- Pyle drain was brought in through the left robotic port skin site and the drain was positioned anterior to the bladder. The drain was secured to the skin with #2-0 Ethilon suture. Next, all the remaining ports were removed and there did not appear to be any bleeding from any of the port sites. The prostate, as well as the lymphatic packets were then extracted from the camera port site after the skin was extended. The fascia in this incision was then closed with a running #0 Vicryl stitch. The previously placed #0 Vicryl free ties through the clerical assistant port were then tied down and all incisions were irrigated. Last, all of the incisions were closed with running subcuticular #4-0 Monocryl sutures. Local anesthesia was applied. Dermabond was then applied to the incisions. This marked the conclusion of the procedure. The patient was then awakened from anesthesia and transported to the recovery room in stable condition. ESTIMATED BLOOD LOSS: 200 mL. COMPLICATIONS: None. SPECIMENS: Prostate and seminal vesicles, right pelvic lymph nodes, left pelvic lymph nodes. PLAN: The patient will be admitted to the hospital postoperatively, and he will likely be discharged home within the next 1-2 days. DAVIDE CHUNG MD Jul 19, 2021 07:48
[2021-07-19 18:00] VITALS: BP 134/71
[2021-07-19] MEDS: HEPARIN SOD (PORCINE) 5000UNITS/ML 1ML VIAL/SYRINGE SC SCH (21:17)
[2021-07-19 22:00] VITALS: BP 129/65
[2021-07-20] MEDS: ceFAZolin SOD 1 GM in D5W MINI-BAG PLUS 50 ML IV SCH ×2 (00:11→07:23)
[2021-07-20 02:00] VITALS: BP 128/66
[2021-07-20] MEDS: ACETAMINOPHEN TAB 650MG DOSE (2X325MG) PO PRN ×2 (02:31→09:13)
[2021-07-20] MEDS: NS 1,000 ML IV SCH (03:43)
[2021-07-20] MEDS: HEPARIN SOD (PORCINE) 5000UNITS/ML 1ML VIAL/SYRINGE SC SCH (05:39)
[2021-07-20 06:00] VITALS: BP 126/65
[2021-07-20 06:07] LABS: HEMATOCRIT 34.2 % (42.0-52.0); HEMOGLOBIN 11.3 g/dl (13.5-17.5); MEAN CORPUSCULAR HEMOGLOBIN 30.9 pg (27.0-33.0); MEAN CORPUSCULAR VOLUME 93.4 fl (80.0-96.0); PLATELET COUNT, AUTOMATED 190 10^3/uL (150-450); RED BLOOD COUNT 3.66 10^6/uL (4.30-6.10)
[2021-07-20 06:30] LABS: BLOOD UREA NITROGEN 21 MG/DL (7-18); CALCIUM LEVEL 8.2 MG/DL (8.8-10.2); CARBON DIOXIDE LEVEL 29 MEQ/L (21-32); CHLORIDE LEVEL 107 MEQ/L (98-107); CREATININE FOR GFR 0.85 MG/DL (0.70-1.30); GLOMERULAR FILTRATION RATE > 60.0 (>49); GLUCOSE, FASTING 108 MG/DL (70-100); POTASSIUM SERUM 4.1 MEQ/L (3.5-5.1); SODIUM LEVEL 141 MEQ/L (136-145)
--- NOTE | 2021-07-20 07:51 | IPNPDOC ---
Subjective Review oF Systems Chief Complaint The patient is a 66-year-old male admitted with a reason for visit of Prostate Cancer. Events since Last Encounter No acute events o/n. Good pain control. No n/v. Ambulated last night w/o difficulty. Tolerating regular diet. No f/c/ns. Objective Physical Examination General Exam: Alert, Cooperative, No Acute Distress ABDOMEN EXAM: Soft, Tenderness (mild), Other (incisions clean/dry/intact; LUCINA w/ serosanguinous output) Skin Exam: Nl turgor and temperature Neuro Exam: Normal Speech Psych Exam: Mental status NL, Mood NL Other physical findings catheter draining pink urine Vital Signs/I&O Vital Signs Date Time Temp Pulse Resp B/P (MAP) Pulse Ox O2 Delivery O2 Flow Rate FiO2 07/20/21 06:00 97.7 72 16 126/65 (85) 97 Room Air 07/19/21 14:45 2.0 I&O- Last 24 Hours up to 6 AM 07/20/21 05:59 Intake Total 4625 ml Output Total 1490 ml Balance 3135 ml Laboratory Data Labs 24H Laboratory Tests 2 07/19/21 12:41: Nucleated Red Blood Cells % (auto) 0.0, Anion Gap 7L, Glomerular Filtration Rate > 60.0, Calcium Level 8.5L 07/20/21 05:48: Nucleated Red Blood Cells % (auto) 0.0, Anion Gap 5L, Glomerular Filtration Rate > 60.0, Calcium Level 8.2L CBC/BMP Laboratory Tests 07/19/21 12:41 07/20/21 05:48 Assessment/Plan Date Seen The patient was seen on 07/20/21. Patient Summary This is a 66 y/o M POD1 s/p RALP w/ BPLND. He is doing well. Hb 11.3. Cr 0.85. Good UOP. Normal LUCINA output. Plan/VTE VTE Prophylaxis Ordered?: Yes VTE Exclusion Mechanical Proph: N/A:VTE Prophy Ordered VTE Exclusion Pharmacological: N/A:VTE Prophy Ordered Plan/Urinary Catheter Urinary Catheter: Other Catheter: (catheter to stay in at least 7 days for healing of vesicourethral anastomosis) Plan - d/c IVF - percocet prn pain - continue home meds - ambulate - strict I/Os - SCDs when in bed - SQH - incentive spirometry - regular diet - possible discharge home later today w/ catheter (will d/c LUCINA prior to discharge) DAVIDE CHUNG MD Jul 20, 2021 07:51
[2021-07-20] MEDS ORDERED: CIPR-249 PO (08:47)
[2021-07-20] MEDS ORDERED: PERCOCET PO (08:47)
[2021-07-20] MEDS ORDERED: COLA100C5 PO (08:47)
[2021-07-20] MEDS ORDERED: amLODIPine 5 MG TAB PO SCH (09:00)
[2021-07-20] MEDS ORDERED: METOPROLOL SUCC *XL* 25MG TAB (TopROL *XL*) PO SCH (09:00)
[2021-07-20] MEDS ORDERED: LOSARTAN 50MG TABLET PO SCH (09:00)
[2021-07-20 09:02] VITALS: BP 126/65
[2021-07-20] MEDS: DOCUSATE SODIUM 100MG CAPSULE PO SCH (09:02)
[2021-07-20 10:00] VITALS: BP 140/70
--- NOTE | 2021-07-20 16:49 | DSES ---
DISCHARGE SUMMARY DATE OF ADMISSION: 07/19/2021 DATE OF DISCHARGE: 07/20/2021 ADMISSION DIAGNOSIS: Prostate cancer. DISCHARGE DIAGNOSIS: Prostate cancer. ADMITTING PHYSICIAN: Dr. Almas Eastman. DISCHARGING PHYSICIAN: Dr. Almas Eastman PROCEDURES PERFORMED: Robotic-assisted laparoscopic radical prostatectomy with bilateral pelvic lymph node dissection on 07/19/2021. HISTORY OF PRESENT ILLNESS: This is a 66-year-old male with intermediate-risk prostate cancer who underwent the above-listed procedure for treatment. He was admitted to the hospital postoperatively. HOSPITALIZATION COURSE: The patient was admitted to the hospital after undergoing the above-listed procedure. His postoperative course was unremarkable. On postoperative day #1 all of his labs were within acceptable limits. Specifically, his hemoglobin level was stable at 11.3, and his creatinine was 0.85. He had good urine output throughout his hospital stay. History Rell-Pyle drain output was within normal limits. On postoperative day #1 we got him ambulating, and he did so well. His pain was well controlled with oral pain medications. His diet was advanced, and he tolerated a regular diet. By the afternoon of postoperative day #1 he was deemed ready for discharge home. His Rell-Pyle drain was removed. He was discharged home with his catheter in place with the plan for him to followup in the urology clinic in approximately 1 week.
== END 2021-07-20 13:45 | disposition home or self-care (01) | DRG 708 ==
LOC: M OR 06:02 → M MS5PR 14:10
PROVIDERS: ADMIT Urology; ATTEND Urology
PROC: 07BC4ZX Excision of Pelvis Lymphatic, Percutaneous Endoscopic Approach, Diagnostic (ICD-10-PCS; 2021-07-19)
PROC: 0TJB8ZZ Inspection of Bladder, Via Natural or Artificial Opening Endoscopic (ICD-10-PCS; 2021-07-19)
PROC: 8E0W4CZ Robotic Assisted Procedure of Trunk Region, Percutaneous Endoscopic Approach (ICD-10-PCS; 2021-07-19)
PROC: 0VT04ZZ Resection of Prostate, Percutaneous Endoscopic Approach (ICD-10-PCS; principal; 2021-07-19 07:30)
DX: C61 Malignant neoplasm of prostate (principal); I10 Essential (primary) hypertension; Z79.899 Other long term (current) drug therapy; Z79.82 Long term (current) use of aspirin; Z79.01 Long term (current) use of anticoagulants

== ENCOUNTER 2021-08-11 09:45 | Inpatient (IN) | payer MEDICARE, BC ==
[~2021-08-11] VITALS: Ht 188 cm; Wt 89.0 kg
[~2021-08-11 09:45] MED LIST changes: +CIPR-249 PO; +COLA100C5 PO; -HEPARIN SOD (PORCINE) 5000UNITS/ML 1ML VIAL/SYRINGE SQ ONE; +LOSA100T45 PO; -LOSA100T50 PO; -LR 1,000 ML IV ONE; +PERCOCET PO; -ceFAZolin SOD 2 GM in IV 1 EA IV ONE
[2021-08-11] MEDS ORDERED: ACETAMINOPHEN TAB 650MG DOSE (2X325MG) PO ONE (10:20)
[2021-08-11] MEDS ORDERED: NS 1,000 ML IV ONE (10:20)
[2021-08-11 10:53] LABS: BASO # 0.1 10^3/uL (0.0-0.2); BASO % 0.3 % (0.0-1.0); EOS % 0.1 % (0.0-3.0); HEMATOCRIT 36.9 % (42.0-52.0); HEMOGLOBIN 12.2 g/dl (13.5-17.5); LYMPH # 0.5 10^3/uL (1.5-5.0); LYMPH % 2.9 % (24.0-44.0); MEAN CORPUSCULAR HEMOGLOBIN 31.2 pg (27.0-33.0); MEAN CORPUSCULAR HGB CONC 33.1 g/dl (32.0-36.5); MEAN CORPUSCULAR VOLUME 94.4 fl (80.0-96.0); MONO # 0.8 10^3/uL (0.0-0.8); MONO % 4.6 % (2.0-8.0); NEUTROPHILS # 15.9 10^3/uL (1.5-8.5); NEUTROPHILS % 90.7 % (36.0-66.0); PLATELET COUNT, AUTOMATED 172 10^3/uL (150-450); RED BLOOD COUNT 3.91 10^6/uL (4.30-6.10); WHITE BLOOD COUNT 17.5 10^3/uL (4.0-10.0)
[2021-08-11 10:56] LABS: INR 1.25; PROTHROMBIN TIME 16.1 SECONDS (12.7-14.5)
[2021-08-11 10:57] LABS: PARTIAL THROMBOPLASTIN TIME 36.5 SECONDS (25.9-37.0)
[2021-08-11 11:19] LABS: ERYTHROCYTE SEDIMENTATION RATE 44 mm/hr (0-20)
[2021-08-11 11:20] LABS: ALBUMIN 3.4 GM/DL (3.2-5.2); ALT/SGPT 34 U/L (12-78); BILIRUBIN,DIRECT 0.3 MG/DL (0.0-0.2); BILIRUBIN,TOTAL 0.9 MG/DL (0.2-1.0); BLOOD UREA NITROGEN 31 MG/DL (7-18); CALCIUM LEVEL 8.6 MG/DL (8.8-10.2); CARBON DIOXIDE LEVEL 30 MEQ/L (21-32); CHLORIDE LEVEL 100 MEQ/L (98-107); CREATININE FOR GFR 1.22 MG/DL (0.70-1.30); GLOMERULAR FILTRATION RATE > 60.0 (>49); GLUCOSE, FASTING 119 MG/DL (70-100); LIPASE 48 U/L (73-393); POTASSIUM SERUM 3.5 MEQ/L (3.5-5.1); SODIUM LEVEL 135 MEQ/L (136-145); TOTAL PROTEIN 6.8 GM/DL (6.4-8.2)
[2021-08-11] MEDS ORDERED: CEFTAROLINE FOSAMIL 600 MG in D5W MINI-BAG PLUS 50 ML IV ONE (12:00)
[2021-08-11] MEDS ORDERED: ISOVUE-370 76% 100ML VIAL As Ordered ONE (12:41)
[2021-08-11] MEDS ORDERED: VALS80TA PO (13:10)
[2021-08-11] MEDS ORDERED: LOSA100T45 PO (13:10)
[2021-08-11] MEDS ORDERED: HYDR-3490 PO (13:10)
[2021-08-11] MEDS ORDERED: COQ1100C5 PO (13:10)
[2021-08-11] MEDS ORDERED: HOME MED LIST COMPLETE! XX SCH (13:15)
[2021-08-11] MEDS ORDERED: IBUPROFEN 400MG TAB PO ONE (13:35)
[2021-08-11] MEDS: NS 1,000 ML IV SCH ×3 (16:59→19:22)
[2021-08-11] MEDS: PIPERACILLIN/TAZOBACTAM SOD 3.375 GM in D5W MINI-BAG PLUS 50 ML IV SCH (19:22)
[2021-08-11 20:30] VITALS: BP 127/64
[2021-08-11] MEDS: VANCOMYCIN HCL 1,000 MG, VIAL MATE ADAPTER 1 EACH in NS 250 ML IV SCH (21:42)
[2021-08-11] MEDS: HEPARIN SOD (PORCINE) 5000UNITS/ML 1ML VIAL/SYRINGE SC SCH (21:42)
[2021-08-12] MEDS: PIPERACILLIN/TAZOBACTAM SOD 3.375 GM in D5W MINI-BAG PLUS 50 ML IV SCH ×5 (00:56→23:43)
[2021-08-12] MEDS: NS 1,000 ML IV SCH ×2 (03:32→14:25)
[2021-08-12] MEDS: HEPARIN SOD (PORCINE) 5000UNITS/ML 1ML VIAL/SYRINGE SC SCH ×3 (05:37→20:31)
[2021-08-12 06:24] VITALS: BP 122/65
[2021-08-12 07:20] LABS: BASO # 0.1 10^3/uL (0.0-0.2); BASO % 0.3 % (0.0-1.0); HEMATOCRIT 33.6 % (42.0-52.0); HEMOGLOBIN 10.9 g/dl (13.5-17.5); LYMPH # 0.7 10^3/uL (1.5-5.0); LYMPH % 3.4 % (24.0-44.0); MEAN CORPUSCULAR HEMOGLOBIN 31.1 pg (27.0-33.0); MEAN CORPUSCULAR HGB CONC 32.4 g/dl (32.0-36.5); MONO # 1.2 10^3/uL (0.0-0.8); MONO % 5.5 % (2.0-8.0); NEUTROPHILS # 17.7 10^3/uL (1.5-8.5); NEUTROPHILS % 82.1 % (36.0-66.0); PLATELET COUNT, AUTOMATED 147 10^3/uL (150-450); WHITE BLOOD COUNT 21.6 10^3/uL (4.0-10.0)
[2021-08-12 07:45] LABS: ALBUMIN 2.8 GM/DL (3.2-5.2); CALCIUM LEVEL 8.1 MG/DL (8.8-10.2); CREATININE FOR GFR 1.45 MG/DL (0.70-1.30); GLOMERULAR FILTRATION RATE 51.7 (>49); MAGNESIUM LEVEL 1.9 MG/DL (1.8-2.4); POTASSIUM SERUM 3.6 MEQ/L (3.5-5.1); TOTAL PROTEIN 6.5 GM/DL (6.4-8.2)
[2021-08-12] MEDS: ASPIRIN 81MG ENTERIC TABLET PO SCH (08:42)
[2021-08-12] MEDS: VANCOMYCIN HCL 1,000 MG, VIAL MATE ADAPTER 1 EACH in NS 250 ML IV SCH ×2 (08:42→20:27)
[2021-08-12] MEDS ORDERED: METOPROLOL SUCC *XL* 25MG TAB (TopROL *XL*) PO SCH (09:00)
[2021-08-12] MEDS ORDERED: POTASSIUM CHLORIDE 10MEQ SR TABLET PO ONE (10:50)
[2021-08-12] MEDS: LACTOBACILLUS ACIDOPHILUS CAP (BACID) PO SCH ×2 (11:30→17:21)
[2021-08-12 14:00] VITALS: BP 106/60
[2021-08-12] MEDS ORDERED: ACETAMINOPHEN TAB 650MG DOSE (2X325MG) PO ONE (14:10)
[2021-08-12 15:26] VITALS: BP 117/59
[2021-08-12 15:36] LABS: CLOSTRIDIUM DIFFICILE PCR NEGATIVE (NEGATIVE)
[2021-08-12 22:00] VITALS: BP 117/60
[2021-08-13] MEDS: PIPERACILLIN/TAZOBACTAM SOD 3.375 GM in D5W MINI-BAG PLUS 50 ML IV SCH ×4 (05:38→23:21)
[2021-08-13] MEDS: HEPARIN SOD (PORCINE) 5000UNITS/ML 1ML VIAL/SYRINGE SC SCH ×3 (05:39→21:47)
[2021-08-13 06:00] VITALS: BP 120/63
[2021-08-13 08:13] LABS: HEMATOCRIT 30.3 % (42.0-52.0); HEMOGLOBIN 10.1 g/dl (13.5-17.5); MEAN CORPUSCULAR HEMOGLOBIN 31.2 pg (27.0-33.0); MEAN CORPUSCULAR HGB CONC 33.3 g/dl (32.0-36.5); MEAN CORPUSCULAR VOLUME 93.5 fl (80.0-96.0); PLATELET COUNT, AUTOMATED 160 10^3/uL (150-450); RED BLOOD COUNT 3.24 10^6/uL (4.30-6.10); WHITE BLOOD COUNT 18.1 10^3/uL (4.0-10.0)
[2021-08-13 08:44] LABS: ALBUMIN 2.4 GM/DL (3.2-5.2); ALT/SGPT 34 U/L (12-78); BILIRUBIN,TOTAL 0.9 MG/DL (0.2-1.0); BLOOD UREA NITROGEN 28 MG/DL (7-18); CALCIUM LEVEL 8.2 MG/DL (8.8-10.2); CARBON DIOXIDE LEVEL 24 MEQ/L (21-32); CHLORIDE LEVEL 110 MEQ/L (98-107); CREATININE FOR GFR 1.02 MG/DL (0.70-1.30); GLOMERULAR FILTRATION RATE > 60.0 (>49); GLUCOSE, FASTING 112 MG/DL (70-100); PHOSPHORUS LEVEL 1.3 MG/DL (2.5-4.9); POTASSIUM SERUM 3.4 MEQ/L (3.5-5.1); SODIUM LEVEL 140 MEQ/L (136-145); TOTAL PROTEIN 6.2 GM/DL (6.4-8.2); VANCOMYCIN LEVEL TROUGH 10.8 UG/ML (10.0-20.0)
[2021-08-13 08:53] LABS: ATYPICAL LYMPH 1 % (0-5); EOSINOPHILS 3 % (0-3); LYMPHOCYTES 1 % (16-44); MONOCYTES 5 % (0-5); NEUTROPHILS 83 % (28-66)
[2021-08-13 09:14] LABS: DOHLE BODIES 1+; OVALOCYTES 1+; PLATELET ESTIMATE NORMAL (NORMAL)
[2021-08-13] MEDS: VANCOMYCIN HCL 750 MG, VIAL MATE ADAPTER 1 EACH in NS 250 ML IV SCH ×2 (09:26→18:30)
[2021-08-13] MEDS: LACTOBACILLUS ACIDOPHILUS CAP (BACID) PO SCH ×2 (09:26→17:24)
[2021-08-13] MEDS: ASPIRIN 81MG ENTERIC TABLET PO SCH (09:26)
[2021-08-13] MEDS ORDERED: POTASSIUM CHLORIDE 10MEQ SR TABLET PO ONE (10:00)
[2021-08-13] MEDS ORDERED: K-PHOS ORIGINAL (POT.ACID PHOSPHATE) 500MG TAB PO ONE (11:00)
[2021-08-13 14:59] VITALS: BP 149/82
[2021-08-13 22:00] VITALS: BP 147/75
[2021-08-14] MEDS: VANCOMYCIN HCL 750 MG, VIAL MATE ADAPTER 1 EACH in NS 250 ML IV SCH ×3 (02:37→17:54)
[2021-08-14] MEDS: PIPERACILLIN/TAZOBACTAM SOD 3.375 GM in D5W MINI-BAG PLUS 50 ML IV SCH ×4 (05:45→23:15)
[2021-08-14] MEDS: HEPARIN SOD (PORCINE) 5000UNITS/ML 1ML VIAL/SYRINGE SC SCH ×2 (05:45→23:15)
[2021-08-14 06:00] VITALS: BP 132/71
[2021-08-14 07:12] LABS: BASO % 0.2 % (0.0-1.0); EOS # 0.2 10^3/uL (0.0-0.5); EOS % 1.5 % (0.0-3.0); HEMATOCRIT 28.6 % (42.0-52.0); HEMOGLOBIN 9.4 g/dl (13.5-17.5); LYMPH # 0.6 10^3/uL (1.5-5.0); LYMPH % 4.5 % (24.0-44.0); MEAN CORPUSCULAR HEMOGLOBIN 30.6 pg (27.0-33.0); MEAN CORPUSCULAR HGB CONC 32.9 g/dl (32.0-36.5); MEAN CORPUSCULAR VOLUME 93.2 fl (80.0-96.0); MONO # 0.9 10^3/uL (0.0-0.8); MONO % 6.3 % (2.0-8.0); NEUTROPHILS # 11.7 10^3/uL (1.5-8.5); NEUTROPHILS % 86.3 % (36.0-66.0); PLATELET COUNT, AUTOMATED 185 10^3/uL (150-450); RED BLOOD COUNT 3.07 10^6/uL (4.30-6.10); WHITE BLOOD COUNT 13.6 10^3/uL (4.0-10.0)
[2021-08-14 07:41] LABS: ALBUMIN 2.2 GM/DL (3.2-5.2); ALT/SGPT 45 U/L (12-78); BILIRUBIN,TOTAL 0.7 MG/DL (0.2-1.0); BLOOD UREA NITROGEN 19 MG/DL (7-18); CARBON DIOXIDE LEVEL 22 MEQ/L (21-32); CHLORIDE LEVEL 112 MEQ/L (98-107); CREATININE FOR GFR 0.79 MG/DL (0.70-1.30); GLOMERULAR FILTRATION RATE > 60.0 (>49); GLUCOSE, FASTING 110 MG/DL (70-100); PHOSPHORUS LEVEL 1.5 MG/DL (2.5-4.9); POTASSIUM SERUM 3.2 MEQ/L (3.5-5.1); SODIUM LEVEL 142 MEQ/L (136-145); TOTAL PROTEIN 6.2 GM/DL (6.4-8.2)
[2021-08-14] MEDS ORDERED: POTASSIUM CHLORIDE 10MEQ SR TABLET PO ONE (09:00)
[2021-08-14] MEDS: ASPIRIN 81MG ENTERIC TABLET PO SCH (09:11)
[2021-08-14] MEDS: amLODIPine 5 MG TAB PO SCH (09:11)
[2021-08-14] MEDS: LACTOBACILLUS ACIDOPHILUS CAP (BACID) PO SCH ×2 (09:11→17:54)
[2021-08-14] MEDS ORDERED: SODIUM PHOSPHATE INJ 30 MMOL in D5W 500 ML IV ONE ×2 (11:00→12:00)
[2021-08-14] MEDS ORDERED: LIDOCAINE 1% MDV 20ML VIAL As Ordered ONE (11:38)
[2021-08-14 14:00] VITALS: BP 160/83
[2021-08-14 21:31] VITALS: BP 136/66
[2021-08-15] MEDS: VANCOMYCIN HCL 750 MG, VIAL MATE ADAPTER 1 EACH in NS 250 ML IV SCH ×3 (02:13→18:08)
[2021-08-15] MEDS: PIPERACILLIN/TAZOBACTAM SOD 3.375 GM in D5W MINI-BAG PLUS 50 ML IV SCH ×4 (05:14→23:00)
[2021-08-15] MEDS: HEPARIN SOD (PORCINE) 5000UNITS/ML 1ML VIAL/SYRINGE SC SCH ×2 (05:15→14:00)
[2021-08-15 05:54] VITALS: BP_SYST 148
[2021-08-15 06:25] LABS: BASO % 0.5 % (0.0-1.0); EOS # 0.2 10^3/uL (0.0-0.5); EOS % 2.3 % (0.0-3.0); HEMOGLOBIN 9.4 g/dl (13.5-17.5); LYMPH # 0.8 10^3/uL (1.5-5.0); LYMPH % 10.3 % (24.0-44.0); MEAN CORPUSCULAR HEMOGLOBIN 31.1 pg (27.0-33.0); MEAN CORPUSCULAR HGB CONC 33.6 g/dl (32.0-36.5); MEAN CORPUSCULAR VOLUME 92.7 fl (80.0-96.0); MONO # 0.8 10^3/uL (0.0-0.8); MONO % 10.8 % (2.0-8.0); NEUTROPHILS # 5.5 10^3/uL (1.5-8.5); NEUTROPHILS % 74.5 % (36.0-66.0); PLATELET COUNT, AUTOMATED 195 10^3/uL (150-450); RED BLOOD COUNT 3.02 10^6/uL (4.30-6.10); WHITE BLOOD COUNT 7.4 10^3/uL (4.0-10.0)
[2021-08-15 07:11] LABS: ALBUMIN 2.2 GM/DL (3.2-5.2); ALT/SGPT 52 U/L (12-78); BILIRUBIN,TOTAL 0.7 MG/DL (0.2-1.0); BLOOD UREA NITROGEN 17 MG/DL (7-18); CALCIUM LEVEL 7.8 MG/DL (8.8-10.2); CARBON DIOXIDE LEVEL 23 MEQ/L (21-32); CHLORIDE LEVEL 112 MEQ/L (98-107); CREATININE FOR GFR 0.82 MG/DL (0.70-1.30); GLOMERULAR FILTRATION RATE > 60.0 (>49); GLUCOSE, FASTING 105 MG/DL (70-100); MAGNESIUM LEVEL 2.1 MG/DL (1.8-2.4); PHOSPHORUS LEVEL 2.8 MG/DL (2.5-4.9); POTASSIUM SERUM 3.5 MEQ/L (3.5-5.1); SODIUM LEVEL 143 MEQ/L (136-145); TOTAL PROTEIN 5.4 GM/DL (6.4-8.2)
[2021-08-15] MEDS: amLODIPine 5 MG TAB PO SCH (08:59)
[2021-08-15] MEDS: ASPIRIN 81MG ENTERIC TABLET PO SCH (08:59)
[2021-08-15] MEDS: LACTOBACILLUS ACIDOPHILUS CAP (BACID) PO SCH ×2 (09:00→17:22)
[2021-08-15] MEDS ORDERED: FUROSEMIDE 100MG/10ML VIAL (J1940) IV ONE (10:45)
[2021-08-15 13:45] VITALS: BP 122/102
[2021-08-15 22:00] VITALS: BP 134/70
[2021-08-16] MEDS: VANCOMYCIN HCL 750 MG, VIAL MATE ADAPTER 1 EACH in NS 250 ML IV SCH (02:10)
[2021-08-16 03:12] LABS: BLOOD UREA NITROGEN BF 20 MG/DL (NOT ESTABLISHED); CREATININE BF 0.8 MG/DL (NOT ESTABLISHED); SOURCE, BODY FLUID CREATININE PERITONEAL
[2021-08-16] MEDS: PIPERACILLIN/TAZOBACTAM SOD 3.375 GM in D5W MINI-BAG PLUS 50 ML IV SCH (04:58)
[2021-08-16 06:00] VITALS: BP 134/72
[2021-08-16 08:00] LABS: BASO # 0.1 10^3/uL (0.0-0.2); BASO % 0.7 % (0.0-1.0); EOS # 0.3 10^3/uL (0.0-0.5); HEMATOCRIT 31.8 % (42.0-52.0); HEMOGLOBIN 10.5 g/dl (13.5-17.5); LYMPH # 0.8 10^3/uL (1.5-5.0); LYMPH % 11.4 % (24.0-44.0); MEAN CORPUSCULAR HEMOGLOBIN 30.6 pg (27.0-33.0); MEAN CORPUSCULAR VOLUME 92.7 fl (80.0-96.0); MONO # 0.7 10^3/uL (0.0-0.8); MONO % 9.8 % (2.0-8.0); NEUTROPHILS # 5.2 10^3/uL (1.5-8.5); NEUTROPHILS % 70.5 % (36.0-66.0); PLATELET COUNT, AUTOMATED 272 10^3/uL (150-450); RED BLOOD COUNT 3.43 10^6/uL (4.30-6.10); WHITE BLOOD COUNT 7.3 10^3/uL (4.0-10.0)
[2021-08-16 08:15] LABS: BLOOD UREA NITROGEN 19 MG/DL (7-18); CALCIUM LEVEL 8.4 MG/DL (8.8-10.2); CARBON DIOXIDE LEVEL 27 MEQ/L (21-32); CHLORIDE LEVEL 109 MEQ/L (98-107); CREATININE FOR GFR 0.83 MG/DL (0.70-1.30); GLOMERULAR FILTRATION RATE > 60.0 (>49); GLUCOSE, FASTING 100 MG/DL (70-100); POTASSIUM SERUM 3.5 MEQ/L (3.5-5.1); SODIUM LEVEL 143 MEQ/L (136-145)
[2021-08-16] MEDS: ASPIRIN 81MG ENTERIC TABLET PO SCH (08:57)
[2021-08-16] MEDS: LACTOBACILLUS ACIDOPHILUS CAP (BACID) PO SCH (08:57)
[2021-08-16 08:58] VITALS: BP 176/82
[2021-08-16] MEDS: amLODIPine 5 MG TAB PO SCH (08:58)
[2021-08-16] MEDS ORDERED: ENOXAPARIN 40MG/0.4ML SYRINGE (J1650 PER 10MG) SC SCH (09:00)
[2021-08-16] MEDS ORDERED: FUROSEMIDE 40MG/4ML VIAL (J1940) IV SCH (09:00)
[2021-08-16] MEDS ORDERED: BACTRIM 160MG/800MG DS TAB PO SCH (09:00)
[2021-08-16] MEDS ORDERED: POTA-151 PO (10:57)
[2021-08-16] MEDS ORDERED: BACTDSTA PO (10:57)
[2021-08-16] MEDS ORDERED: TORS20TA2 PO (10:57)
[2021-08-16] MEDS ORDERED: POTA10TA17 PO (10:58)
[2021-08-16] MEDS ORDERED: VALS80TA PO (13:33)
== END 2021-08-16 14:25 | disposition home or self-care (01) | DRG 919 ==
LOC: M ED 09:45 → M ED INP 15:39 → M MS5PR 20:30
PROVIDERS: ADMIT Internal Medicine; ATTEND Internal Medicine Nephrology
PROC: 0W9G30Z Drainage of Peritoneal Cavity with Drainage Device, Percutaneous Approach (ICD-10-PCS; principal; 2021-08-14 11:30)
DX: N99.842 Postprocedural seroma of a genitourinary system organ or structure following a genitourinary system procedure (principal); A41.9 Sepsis, unspecified organism; N17.9 Acute kidney failure, unspecified; I10 Essential (primary) hypertension; C61 Malignant neoplasm of prostate; I89.8 Other specified noninfective disorders of lymphatic vessels and lymph nodes; J06.9 Acute upper respiratory infection, unspecified; B97.0 Adenovirus as the cause of diseases classified elsewhere; I27.20 Pulmonary hypertension, unspecified; Y83.0 Surgical operation with transplant of whole organ as the cause of abnormal reaction of the patient, or of later complication, without mention of misadventure at the time of the procedure; Z95.0 Presence of cardiac pacemaker; Z79.82 Long term (current) use of aspirin; Z79.899 Other long term (current) drug therapy

== ENCOUNTER → 2021-11-13 | Outpatient (CLI) | payer BC ==
[~2021-11-13] MED LIST changes: +BACTDSTA PO; +COQ1100C5 PO; +POTA-151 PO; +POTA10TA17 PO; +TORS20TA2 PO; +VALS80TA PO
== END ==
LOC: M LAB 08:26
PROVIDERS: ATTEND Urology
DX: C61 Malignant neoplasm of prostate (principal)

== ENCOUNTER → 2022-03-27 | Outpatient (CLI) | payer BC ==
[~2022-03-27] MED LIST changes: -GLUCTAB6 PO; +GLUCTAB7 PO; +POTA-150 PO; -POTA10TA17 PO
== END ==
LOC: M PLALAB 14:29
PROVIDERS: ATTEND Urology
DX: C61 Malignant neoplasm of prostate (principal)

== ENCOUNTER → 2022-07-02 | Outpatient (CLI) | payer BC | LOC: M LAB 08:41 | PROVIDERS: ATTEND Urology | DX: C61 Malignant neoplasm of prostate (principal) ==

== ENCOUNTER → 2022-10-03 | Outpatient (CLI) | payer BC | LOC: M PLALAB 10:32 | PROVIDERS: ATTEND Urology | DX: C61 Malignant neoplasm of prostate (principal) ==

== ENCOUNTER → 2022-12-24 | Outpatient (CLI) | payer BC ==
[~2022-12-24] MED LIST changes: -LOSA100T45 PO; +LOSA100T46 PO
== END ==
LOC: M PLALAB 09:12
PROVIDERS: ATTEND Urology
DX: C61 Malignant neoplasm of prostate (principal)

== ENCOUNTER → 2023-04-25 | Outpatient (CLI) | payer BC | LOC: M LAB 08:06 | PROVIDERS: ATTEND Urology | DX: C61 Malignant neoplasm of prostate (principal) ==

== ENCOUNTER → 2023-07-23 | Outpatient (CLI) | payer BC | LOC: M LAB 08:14 | PROVIDERS: ATTEND Urology | DX: C61 Malignant neoplasm of prostate (principal) ==

== ENCOUNTER 2023-10-02 10:22 | Day surgery (SDC) | payer BC ==
[~2023-10-02] VITALS: Ht 188 cm; Wt 84.4 kg
[~2023-10-02 10:22] MED LIST changes: +ATOR1TAB21 PO; +LIDOCAINE 3.5 % 1ML OPHTH TOPICAL GEL OU ONE; +MIDAZOLAM INJ 2MG/2ML VIAL As Ordered ONE; +THERTAB52 PO; +VALS1TAB68 PO; +fentaNYL 100 MCG/2 ML INJECTION As Ordered ONE
[2023-10-02] MEDS ORDERED: POVIDONE-IODINE 5% OPHTH PREP SOL 30ML As Ordered ONE (12:18)
[2023-10-02] MEDS: TOBRADEX OPHTH OINT 3.5 GM As Ordered ONE (12:40)
[2023-10-02] MEDS: LIDOCAINE 2% W/EPINEPHRINE 20ML VIAL **PRES FREE As Ordered ONE (12:40)
[2023-10-02 13:48] VITALS: BP 165/81; TEMP 97.8; O2SAT 99
== END 2023-10-02 14:24 | disposition home or self-care (01) ==
LOC: M SDC 10:22
PROVIDERS: ATTEND Ophthalmology
DX: H02.403 Unspecified ptosis of bilateral eyelids (principal); Z95.0 Presence of cardiac pacemaker; Z87.891 Personal history of nicotine dependence; Z79.899 Other long term (current) drug therapy
CPT/HCPCS: 67904; 88302; J2250; J3010

== ENCOUNTER → 2023-11-12 | Outpatient (CLI) | payer BC ==
[~2023-11-12] MED LIST changes: -LIDOCAINE 3.5 % 1ML OPHTH TOPICAL GEL OU ONE; -MIDAZOLAM INJ 2MG/2ML VIAL As Ordered ONE; -fentaNYL 100 MCG/2 ML INJECTION As Ordered ONE
== END ==
LOC: M LAB 09:06
PROVIDERS: ATTEND Urology
DX: C61 Malignant neoplasm of prostate (principal)

== ENCOUNTER → 2024-01-31 | Outpatient (CLI) | payer BC | LOC: M LAB 08:23 | PROVIDERS: ATTEND Urology | DX: C61 Malignant neoplasm of prostate (principal) ==

== ENCOUNTER → 2024-07-27 | Outpatient (CLI) | payer BC, MEDICARE | LOC: M LAB 08:58 | PROVIDERS: ATTEND Urology | DX: C61 Malignant neoplasm of prostate (principal) ==

== ENCOUNTER → 2025-02-02 | Outpatient (CLI) | payer BC | LOC: M LAB 11:11 | PROVIDERS: ATTEND Urology | DX: C61 Malignant neoplasm of prostate (principal) ==

== ENCOUNTER 2025-04-04 13:58 | Emergency (ER) | payer BC ==
[~2025-04-04] VITALS: Ht 188 cm; Wt 83.7 kg
[2025-04-04 14:01] VITALS: BP 159/77; TEMP 97.5; O2SAT 95
[2025-04-04] MEDS: ACETAMINOPHEN 500 MG TAB PO ONE (16:26)
== END 2025-04-04 18:14 | disposition home or self-care (01) ==
LOC: M ED 13:58
DX: S83.422A Sprain of lateral collateral ligament of left knee, initial encounter (principal); X50.0XXA Overexertion from strenuous movement or load, initial encounter; M17.12 Unilateral primary osteoarthritis, left knee; C61 Malignant neoplasm of prostate; I10 Essential (primary) hypertension; Y92.22 Religious institution as the place of occurrence of the external cause; Y93.89 Activity, other specified; Y99.9 Unspecified external cause status; Z95.0 Presence of cardiac pacemaker; Z79.82 Long term (current) use of aspirin; Z79.899 Other long term (current) drug therapy; Z79.02 Long term (current) use of antithrombotics/antiplatelets